=== PATIENT | male | born 1950 | race Caucasian/White ===

== ENCOUNTER 2016-05-25 13:10 | Inpatient (IN) | payer OTHER ==
--- NOTE | ~2016-05-25 | OR ---
Unit #: [id number] #: [id number] Patient: WOODROW STEWART [id number] [address] [place], [place] [address] [id number] I MR#: [id number] NAME: WOODROW STEWART ROOM: [facility] Date of Procedure: 05/28/2016 Admission Date: 05/25/2016 Surgeon: Williams Tay M.D. : 1950 Attending Physician: Jerry Tompkins M.D. Primary Care Physician: Dena White M.D. OPERATIVE REPORT INDICATIONS FOR PROCEDURE A 65-year-old white male with evidence of right upper lobe obstruction with postobstructive airspace disease, rule out malignancy. PROCEDURE PERFORMED Fiberoptic bronchoscopy with biopsy and brushings. PREOPERATIVE DIAGNOSIS Rule out malignancy. POSTOPERATIVE DIAGNOSIS Submucosal tumor obstructing left upper lobe anterior and apical posterior segments. Biopsies and brushes done. DESCRIPTION OF PROCEDURE Procedure was done under MAC on supplemental oxygen. O2 saturations remained greater than 90%. Fiberoptic bronchoscope was introduced through the oral cavity via the bite block. Vocal cords were identified. They moved normally to phonation and breathing. There were some thick secretions in the upper airway, which were suctioned free. The vocal cords were anesthetized with 1% lidocaine. The bronchoscope was passed through the vocal cords into the trachea. Trachea appeared normal. Main meek was sharp. The bronchoscope was advanced down the right mainstem into the bronchus intermedius, right middle lobe, right lower lobe, and right upper lobe. All orifices were widely patent without endobronchial lesions. The bronchoscope was withdrawn to the main meek, advanced down the left mainstem and into the left lower lobe. Left lower lobe appeared normal without endobronchial lesions. Left mainstem appeared normal. The bronchoscope was passed into the left upper lobe. Lingula was patent. There was submucosal tumor involving the other segments. They appeared obstructed extrinsically. Brushes were done in both areas and biopsy was also done. There was moderate bleeding. 4 mL of 1:[id number] epinephrine was required for cessation of bleeding. There was extensive suctioning and lavage. The patient will be returned to the step-down area and monitored. Await pathology. Dictated by... Williams Tay M.D. FRANCIS/noe Unit #: [id number] #: [id number] Patient: WOODROW STEWART TD: 05/29/2016 02:55 JOB #: [id number] OPERATIVE REPORT Page 1 of 1 X Williams Tay MD PROCEDURE OPERATIVE NOTE
--- NOTE | ~2016-05-25 | EKG ---
PATIENT: WOODROW STEWART UNIT #: [id number] Ventricular Rate: 140 BPM Atrial Rate: 140 BPM P-R Interval: 90 ms QRS Duration: 154 ms Q-T Interval: 368 ms QTC Calculation(Bezet): 561 ms P [place]: 100 degrees Calculated R [place]: 74 degrees Calculated T [place]: -22 degrees Diagnosis Line: Atrial fibrillation with rapid ventricular Diagnosis Line: response Diagnosis Line: Right bundle branch block Diagnosis Line: Inferior infarct (cited on or before 31-JAN-2016) Diagnosis Line: Anterolateral infarct (cited on or before Diagnosis Line: 31-JAN-2016) Diagnosis Line: Abnormal ECG Diagnosis Line: When compared with ECG of 25-MAY-2016 13:04, Diagnosis Line: Atrial fibrillation has replaced Normal sinus Diagnosis Line: rhythm Diagnosis Line: Vent. rate has increased BY 48 BPM Diagnosis Line: Questionable change in initial forces of Lateral Diagnosis Line: leads Diagnosis Line: Confirmed by MAHENDRA CASTRO MD ([id number]) on 05/29/2016 Diagnosis Line: 10:48:55 PM INTERPRETING MD: MATTHEW STEELE
--- NOTE | ~2016-05-25 | CR72 ---
[facility] A Service of [facility] RADIOLOGY TEXT RESULTS PATIENT: WOODROW STEWART LOCATION: [facility] [address]-33 : [birth year] UNIT #: [id number] AGE: [address]: Jerry Tompkins MD SEX: M ORDER DR: [id number] [facility] [address] [place], [place] [address] [id number] I MR#: [id number] Acc #: [id number] NAME: WOODROW STEWART : 1950 SEX: M STUDY DATE/TIME: 05/25/2016 12:09 UNIT: [facility] ROOM: [id number] STUDY DESCRIPTION: CR Chest Single View Portable Attending Physician: Chaya Monson M.D. Ordering Physician: Maria Eugenia Ahmadi M.D. Primary Care Physician: Dena White M.D. MEDICAL IMAGING REPORT This report is preliminary unless electronic signature is present EXAM Single view chest INDICATIONS Dyspnea and shortness of air. 1-week duration. FINDINGS Single portable AP view of the chest compared to 05/20/2016. The dense left upper lobe airspace opacity is fairly similar to the prior study. There is increasing density and/or effusion in the left hemithorax. Right lung is clear. IMPRESSION 1. Increasing atelectasis and/or effusion in the left lower lobe. 2. Dense consolidation in the left upper lobe. Dictated by... Tomi Wallace M.D. THIS IS AN ELECTRONICALLY VERIFIED REPORT Tomi Wallace M.D. at 05/26/2016 10:43 AM JENNIFFER/lane TD: 05/26/2016 05:04 JOB #: [id number] MEDICAL IMAGING REPORT Page 1 of 1 COPY
--- NOTE | ~2016-05-25 | HP ---
Unit #: [id number] #: [id number] Patient: WOODROW STEWART [id number] [address] [facility] [place], [place] [address] [id number] MR#: [id number] NAME: WOODROW STEWART ROOM: Age: 65 Sex: M Admission Date: 05/25/2016 : 1950 Attending Physician: Maria Eugenia Ahmadi M.D. Primary Care Physician: Dena White M.D. HISTORY AND PHYSICAL CHIEF COMPLAINT Shortness of air. HISTORY OF PRESENT ILLNESS The patient is a 65-year-old male with a past medical history of CHF, coronary artery disease, hypertension, hyperlipidemia, COPD with continued tobacco abuse, chronic kidney disease, chronic pain, alcohol abuse, lupus who presented to the emergency department for evaluation of the above. The patient states that he has not been feeling well since November. He was hospitalized here 03/02/2016 through 03/05/2016 for CHF exacerbation and multifocal pneumonia. He states that he never returned to baseline after that admission. He was diagnosed with the flu a couple of weeks ago. He possibly took Tamiflu. He was diagnosed by his primary care physician with pneumonia recently and was on Levaquin. He states that he has had persistent shortness of breath and productive cough. He has not been taking his medications as prescribed. He states that the Lasix is "harmful" and the spironolactone was "not helpful." He denies any chest pain. Upon arrival in the emergency department oxygen saturation was 97% on room air. Chest x-ray shows increasing atelectasis involving the left lower lobe being in dense consolidation involving the left upper lobe. He was given vancomycin, Zosyn and tobramycin in the emergency department. Also of note, his lactic acid is 2.5, BNP is greater than 4,877. He is being admitted to [facility] for evaluation and further treatment. PAST MEDICAL HISTORY 1. Admission to [facility] 03/02/2016 through 03/05/2016 for CHF exacerbation and multifocal pneumonia. 2. Congestive heart failure with an ejection fraction of 10% documented on echocardiogram in 02/2016. He has seen Dr. Washington in the past. 3. Coronary artery disease, status post coronary artery bypass grafting. 4. Hypertension. 5. Hyperlipidemia. 6. History of TIA. 7. COPD with continued tobacco abuse. 8. Lupus previously on Plaquenil. 9. Pancreatitis. 10. Chronic kidney disease. 11. Chronic pain. PAST SURGICAL HISTORY Unit #: [id number] #: [id number] Patient: WOODROW STEWART 1. Coronary artery bypass grafting. 2. Cardiac stent placement. 3. Skin cancer excision. SOCIAL HISTORY The patient is a daily drinker. He drinks 1 to 3 mixed drinks on a daily basis. He denies going through withdrawal though he has had visual hallucinations per chart review. He continues to smoke 1/2 pack of cigarettes daily. He moved to [place] from [place] in 09/2015. FAMILY HISTORY Notable for his mother having cerebrovascular accident. Dad had congestive heart failure. ALLERGIES Lisinopril, Coumadin, hydrochlorothiazide, adenosine, metoprolol, carvedilol, psyllium. HOME MEDICATIONS Per the discharge summary from 02/2016 include Lasix 40 mg b.i.d.; Spironolactone 25 mg p.o. daily; Flonase daily; atenolol 25 mg t.i.d.; Cozaar 100 mg daily; Pepcid 20 mg b.i.d.; Coenzyme Q 600 mg daily; Melatonin 2 mg at bedtime p.r.n.; Aspirin 325 mg daily; [place] 5/325 daily; Niacin 500 mg b.i.d. Home medications will need to be reviewed and verified. REVIEW OF SYSTEMS A complete review of systems is negative except as indicated in the HPI. The patient is selectively compliant with his medications. He states that he has lost about 30 pounds. PHYSICAL EXAMINATION VITAL SIGNS: Temperature 97.5, pulse 88, respirations 18, blood pressure 146/79, oxygen saturation is 97% on room air. GENERAL: The patient is a male who is chronically ill appearing. HEENT: The head is atraumatic. Mucous membranes are moist. NECK: Supple. Trachea is midline. CARDIOVASCULAR: Regular rate and rhythm. LUNGS: Demonstrate decreased breath sounds on the left with scattered rhonchi. Breathing is labored with conversation. ABDOMEN: Soft, nontender with bowel sounds present in all four quadrants. EXTREMITIES: Show trace edema. NEUROLOGIC: The patient is awake and alert. He follows commands. PSYCH: The patient has a flat affect. He is cooperative with exam. SKIN: Skin of examined areas is warm and dry. DIAGNOSTIC STUDIES CARDIOLOGY STUDIES: EKG shows normal sinus rhythm with a rate of 92 BPM. IMAGING STUDIES: Chest x-ray shows increasing atelectasis in the left lower lobe and dense consolidation involving the left upper lobe. LABORATORY STUDIES: Rapid flu screen is negative. Troponin is less than 0.5. Troponin is less than 0.05. Complete blood count notable for a blood cell count of 18.5, hemoglobin and hematocrit of 11.2 and 35.9 respectively, platelets are 553. Comprehensive metabolic panel is notable for glucose of 135, BUN and creatinine 29 and 1.4 respectively, calcium is Unit #: [id number] #: [id number] Patient: WOODROW STEWART 11.7, alk phos 99, albumin 2.8, lactic acid is 2.5. BNP is greater than 4,877. ASSESSMENT The patient is a 65-year-old male with: 1. Healthcare associated pneumonia. The patient received vancomycin, Zosyn, and tobramycin in the emergency department. 2. Sepsis with a lactic acid of 2.5. 3. History of influenza, possibly treated with Tamiflu. 4. CHF exacerbation. The patient is noncompliant with medication. He has an ejection fraction of 10% as documented in 02/2016. 5. Hypercalcemia. The patient's calcium was 9.7 on 03/30/2016. It is 11.7 today. 6. Coronary artery disease, status post coronary artery bypass grafting. 7. Hypertension. 8. Hyperlipidemia. 9. COPD with continued tobacco abuse. 10. Chronic kidney disease, stage 3 with a baseline creatinine of approximately 1.3. The patient has seen Dr. Sifuentes in the past. 11. Chronic pain. 12. Alcohol abuse. 13. History of lupus. 14. History of pancreatitis. PLAN 1. Admit to an intermediate level. 2. 2 g sodium 1800 mL fluid restricted heart healthy diet if passes bedside swallow. 3. Fall precautions. 4. Bedrest. 5. Blood cultures x2. 6. Sputum culture and sensitivity. 7. Supplemental oxygen. 8. Check ABG. 9. Vancomycin IV. 10. Tobramycin IV. 11. Zosyn IV for healthcare associated pneumonia pending further workup. 12. Procalcitonin level. 13. Streptococcal and Legionella urine antigens. 14. DuoNeb q.4 hours. 15. Sepsis protocol with repeat lactic acid. 16. Consult Dr. Barros who has seen the patient in the past regarding healthcare associated pneumonia. 17. Serial cardiac enzymes. 18. Strict I's and O's. 19. Daily weights. 20. Dobutamine drip at 5 mcg/kg/min. 21. Consult Dr. Washington regarding CHF. 22. Check ionized calcium and intact PTH for further evaluation of hypercalcemia. 23. Thiamine, folic acid, and multivitamin. 24. CIWA scoring. 25. Repeat labs in the morning. 26. SCDs for DVT prophylaxis. 27. Additional workup and consultants based on above. Regarding code status, the patient is a full code. Unit #: [id number] #: [id number] Patient: WOODROW STEWART Dictated by Nader Canchola/jemima TD: 05/25/2016 15:19 JOB #: [id number] HISTORY AND PHYSICAL Page 1 of 1 X Chaya Monson MD X HISTORY AND PHYSICAL
--- NOTE | ~2016-05-25 | XA55 ---
[facility] A Service of [facility] & [facility] RADIOLOGY TEXT RESULTS PATIENT: WOODROW STEWART LOCATION: [facility] 339-01 : [birth year] UNIT #: [id number] AGE: [address]: Jerry Tompkins MD SEX: M ORDER DR: [id number] [address] [place], [place] [address] [id number] I MR#: [id number] Acc #: [id number] NAME: WOODROW STEWART : 1950 SEX: M STUDY DATE/TIME: 05/30/2016 14:26 UNIT: A [facility] ROOM: [facility] STUDY DESCRIPTION: XA BX Lymph Node Superficial Attending Physician: Jerry Tompkins M.D. Ordering Physician: Danie Tucker M.D. Primary Care Physician: Dena White M.D. MEDICAL IMAGING REPORT This report is preliminary unless electronic signature is present EXAM Ultrasound-guided fine-needle aspiration and core biopsy of a left neck lymph node INDICATIONS 65-year-old male with a history of suspected lung cancer. He has a palpable lymph node it his left neck, suspicious for metastasis. Fine-needle aspiration was requested. PROCEDURE The risks, benefits and alternatives of the procedure were discussed with the patient informed consent was obtained. In the procedure room a timeout was performed confirming correct patient and procedure. All elements of maximum sterile-barrier technique utilized according to guidelines appropriate for the procedure. TECHNIQUE/FINDINGS Ultrasound of the palpable abnormality demonstrated an enlarged hypoechoic irregular abnormal appearing lymph node. The overlying skin was prepped and draped in the usual sterile fashion. 1% lidocaine was utilized to anesthetize the skin and underlying subcutaneous tissues. Next under ultrasound guidance initial fine-needle aspiration of the node was performed with 3 25 gauge needles and the samples were evaluated by pathology. Next two small core biopsies were able to be obtained with an 18-gauge needle and also sent to pathology. Patient tolerated procedure well without immediate complications. IMPRESSION Technically successful ultrasound-guided FNA and core biopsy of a abnormal appearing left neck lymph node. Dictated by... Franklyn Bosch M.D. [facility] A Service of [facility] & [facility] RADIOLOGY TEXT RESULTS PATIENT: WOODROW STEWART LOCATION: [facility] 339-01 : [birth year] UNIT #: [id number] AGE: [address]: Jerry Tompkins MD SEX: M ORDER DR: THIS IS AN ELECTRONICALLY VERIFIED REPORT Franklyn Bosch M.D. at 05/31/2016 2:34 PM JESISCA/lane TD: 05/30/2016 19:37 JOB #: [id number] MEDICAL IMAGING REPORT Page 1 of 1 COPY
--- NOTE | ~2016-05-25 | CR72 ---
[facility] A Service of [facility] & [facility] RADIOLOGY TEXT RESULTS PATIENT: WOODROW STEWART LOCATION: [facility] 339-01 : [birth year] UNIT #: [id number] AGE: [address]: Jerry Tompkins MD SEX: M ORDER DR: [id number] [facility] [address] [facility] [place], [place] [address] [id number] I MR#: [id number] Acc #: [id number] NAME: WOODROW STEWART : 1950 SEX: M STUDY DATE/TIME: 05/27/2016 14:37 [facility] ROOM: [facility] STUDY DESCRIPTION: CR Chest Single View Portable Attending Physician: Jerry Tompkins M.D. Ordering Physician: Anthony Sykes M.D. Primary Care Physician: Dena White M.D. MEDICAL IMAGING REPORT This report is preliminary unless electronic signature is present EXAM Portable chest radiograph 05/27/2016 COMPARISON 05/25/2016 HISTORY Status post thoracentesis. An AP view is obtained. FINDINGS Cardiac size is normal. The patient has had interim drainage of the left pleural effusion. No residual fluid is seen. Left base is re-expanded. Left upper lobe infiltrate persists. CONCLUSION Persistent left upper lobe infiltrate. Interim drainage of the left-sided pleural fluid collection. No pneumothorax. Dictated by... Anthony Sykes M.D. THIS IS AN ELECTRONICALLY VERIFIED REPORT Anthony Sykes M.D. at 05/27/2016 5:04 PM EFRA/marques TD: 05/27/2016 16:54 JOB #: [id number] MEDICAL IMAGING REPORT Page 1 of 1 COPY
--- NOTE | ~2016-05-25 | CO ---
Unit #: [id number] #: [id number] Patient: VITALIY STEWART [id number] [address] [place], [place] [address] [id number] I MR#: [id number] NAME: VITALIY STEWART ROOM: 339 Age: 65 Sex: M Admission Date: 05/25/2016 : 1950 Attending Physician: Jerry Tompkins M.D. Primary Care Physician: Dena White M.D. Requesting Physician: Williams Tay M.D. Consultation Date: 05/30/2016 CONSULTATION REPORT REASON FOR CONSULTATION Newly diagnosed lung cancer. HISTORY OF PRESENT ILLNESS Mr. Vitaliy Stewart is 65 years old. This is his third hospitalization in as many months for shortness of breath, weight loss, with a diagnosis of congestive heart failure. He was hospitalized January 30 and discharged February 05, 2016 with congestive heart failure, readmission on March 02 through March 12 and now admitted on May 25. A CT scan of the chest done on March 29 was abnormal and showed abnormal soft tissue thickening in the left hilum encasing the left upper lobe pulmonary bronchus. There were dense consolidative-type changes in the left upper lobe. There were small noncalcified nodules scattered within both lungs. There was also, what was felt to be, pathologic lymphadenopathy measuring 4.5 cm to 3.2 cm and right lower paratracheal adenopathy measuring 3.1 cm x 3.1 cm and an AP window measuring 1.7 cm x 2.7 cm along with additional anterior mediastinal subcarinal adenopathy. Mr. Stewart had earlier, because of visual hallucinations, an MRI of the brain done on January 09, which showed greater than expected volume loss for age with some abnormal enhancement in the kristopher thought to be small vessel disease. He underwent a bronchoscopy during this admission by Dr. Tay on May 28 with findings of submucosal tumor involving the left upper lobe with patent lingula. There was obstruction "externally." Brushings were done, as well as a biopsy. Biopsy is negative for malignancy; however, brushings are positive for a non-small cell cancer but not enough material to do additional staining. Mr. Stewart tells me his appetite and weight are variable, and he thinks that much of his weight loss is a combination of heart failure, as well as related to his decreased appetite. He also has ischemic cardiomyopathy with coronary artery disease with angioplasty and stent placement and bypass surgery in January of 2015. His ejection fraction is about 10%. He has declined an ICD. PAST HISTORY 1. Ischemic cardiomyopathy with chronic congestive heart failure. 2. Hypertension. 3. Hyperlipidemia. 4. Transient ischemic attack. 5. COPD. Unit #: [id number] #: [id number] Patient: VITALIY STEWART 6. History of lupus. FAMILY HISTORY Negative for cancer in the immediate family. SOCIAL HISTORY Smokes about half a pack a day. Drinks about 2 or 3 mixed drinks a day. He moved from [facility] with his . He has no children of his own. His does have family locally. REVIEW OF SYSTEMS A 14-point review of systems was taken. CONSTITUTIONAL: Progressive weight loss, decreased appetite as discussed. EYES: Visual hallucinations, which he tells me are better. EARS, NOSE, MOUTH AND THROAT: Negative. CARDIOVASCULAR: Congestive heart failure. RESPIRATORY: Shortness of breath. He did have a large pleural effusion, of which 1,600 mL was drained on the left side with serology negative for malignancy, although there were atypical cells. GASTROINTESTINAL: Negative. GENITOURINARY: Negative. NEUROLOGIC: History of TIA. ALLERGIC: Negative. LYMPHATIC: Negative. ENDOCRINE: Negative. PSYCHIATRIC: Negative. PHYSICAL EXAMINATION GENERAL: He is an elderly man who looks older than stated age. Looks to have recently lost a lot of weight, looks chronically ill. He is awake, alert and oriented x3. VITALS: Temperature is 97, pulse rate 80, respirations 20, blood pressure 130/83, O2 sats 96% on room air. Weight is 121 pounds. HEENT: Head examination shows pupils are equal and react well to light. Mild pallor. No icterus. Mucous membranes are moist. NECK: Without adenopathy, JVD or thyromegaly. CARDIOVASCULAR SYSTEM: First and second heart sounds were heard and regular. LUNGS: Chest expansion is symmetric; however, there is decreased air entry in the left base. ABDOMEN: Abdomen is soft, nontender. Bowel sounds are active. No organomegaly. EXTREMITIES: Extremities show 1+ pitting edema. Good pulses felt. NEUROLOGIC: He is awake, alert and oriented x3 without any focal findings. SKIN: Negative. LYMPHATICS: A small 1-cm left axillary lymph node palpable. DIAGNOSTIC STUDIES LABS: BMP shows a BUN of 31, creatinine 1.7, eGFR 41.4. White count is 19.4, hemoglobin 10.8, platelet count 408. ASSESSMENT AND PLAN Mr. Vitaliy Stewart is 65 years old with history of ischemic cardiomyopathy, chronic congestive heart failure with ejection fraction of 10% with progressive weight loss and left pleural effusion, which appear to be related to his heart failure with left upper lobe lung cancer with mediastinal lymphadenopathy. Brushings show non-small cell lung cancer, Unit #: [id number] #: [id number] Patient: VITALIY STEWART although additional stains could not be done. I had an extensive discussion of the situation with Mr. Stewart, as well as his on the phone. Recommended a repeat MRI of the brain given that the last MRI was done in December, as well as a PET CT scan for confirmation of stage, following which we can discuss about additional therapeutic options. I will get an ultrasound of the axilla to see whether the palpable axillary lymph node is accessible and, if so, get a biopsy, as well. Thank you for allowing me to participate in his care. Dictated by... Nader Lai/massiel TD: 05/30/2016 10:40 JOB #: [id number] CONSULTATION REPORT Page 1 of 1 X Danie Tucker MD X CONSULTATION REPORT
--- NOTE | ~2016-05-25 | DS ---
Unit #: [id number] #: [id number] Patient: WOODROW STEWART [id number] [address] [address] [id number] I MR#: [id number] NAME: WOODROW STEWART ROOM: 339 Age: 65 Sex: M Admission Date: 05/25/2016 : 1950 Discharge Date: 05/30/2016 Attending Physician: Jerry Tompkins M.D. Primary Care Physician: Dena White M.D. DISCHARGE SUMMARY DISCHARGE DIAGNOSES 1. Healthcare-associated pneumonia. 2. Severe sepsis. 3. Acute on chronic systolic heart failure. 4. Hypercalcemia. 5. Stage 3 chronic kidney disease. 6. Non-small cell lung cancer. 7. Acute hypoxic respiratory failure. HOSPITAL COURSE Patient is a 65-year-old male with history of alcohol abuse who presented to the ED with a complaint of shortness of breath. Patient had recently been treated for pneumonia, but had persistent shortness of breath and cough since then. Also, he had stopped taking his Lasix as well. The patient was started on vanc., Zosyn, and tobra. for a presumed healthcare-associated pneumonia. The patient was noted to have a BNP greater than 4000 and was started on diuretics as well. The patient had been seen in the past by Chest Medicine and a consult was placed during this admission. The patient was thought to have evidence of a right upper lobe obstruction with postobstructive airspace disease and was taken for fiberoptic bronchoscopy. At this point, the concern is for non-small cell lung cancer. The patient has done well with treatments described above. At this time, he is stable and ready for discharge. He is to undergo fine needle aspiration and then be discharged home. DISCHARGE MEDICATIONS 1. Tenormin 25 mg p.o. b.i.d. 2. Lasix 40 mg p.o. daily. 3. Cozaar 100 mg p.o. daily. 4. Pepcid AC 20 mg p.o. b.i.d. 5. CoQ10 600 mg p.o. daily. 6. Aspirin 81 mg daily. 7. Motrin 400 mg p.o. t.i.d. as needed. 8. Hydrocodone/acetaminophen 5/325 one p.o. daily as needed. 9. Augmentin 875 mg p.o. b.i.d. 10. Spironolactone 12.5 mg p.o. b.i.d. 11. Niaspan 1000 mg p.o. b.i.d. FOLLOWUP 1. The patient should follow up with Dr. Washington August 05 at 12:15. Unit #: [id number] #: [id number] Patient: WOODROW STEWART 2. Should follow up with oncology later this week. Dictated by... Jerry Tompkins M.D. KALA/hebert TD: 05/31/2016 07:39 JOB #: [id number] DISCHARGE SUMMARY Page 1 of 1 X Jerry Tompkins MD X DISCHARGE SUMMARY
--- NOTE | ~2016-05-25 | XA203 ---
[facility] A Service of [facility] RADIOLOGY TEXT RESULTS PATIENT: WOODROW STEWART LOCATION: [facility] 339-01 : 50 UNIT #: [id number] AGE: [address]: Jerry Tompkins MD SEX: M ORDER DR: [id number] [place] [id number] [facility]. [place], [place] [address] [id number] I MR#: [id number] #: [id number] NAME: WOODROW STEWART : 1950 SEX: M STUDY DATE/TIME: 05/27/2016 14:01 UNIT: C3A U ROOM: [facility] STUDY DESCRIPTION: XA Thoracentesis Attending Physician: Jerry Tompkins M.D. Ordering Physician: Alonso Veliz M.D. Primary Care Physician: Dena White M.D. MEDICAL IMAGING REPORT This report is preliminary unless electronic signature is present EXAM Ultrasound-guided left thoracentesis HISTORY Pneumonia. Left pleural effusion. FINDINGS Procedure, attendant risks and options were discussed with Mr. Partida. He understands and wishes to proceed. Patient was placed in the sitting position. From a posterior approach ultrasound study was performed and an appropriate site chosen. Skin was cleansed with the Chlorhexidine solution and draped. Sterile gloves utilized. Under local anesthesia a 5-Urdu catheter was inserted. A total of 1.6 L of fluid was withdrawn. This was very well tolerated. Postprocedure chest radiograph shows complete reexpansion of the left lower lobe with dense consolidation in the left upper lobe. Permanent ultrasound image was recorded. CONCLUSION Successful ultrasound-guided left thoracentesis with removal of 1,600 mL of fluid. Dictated by... Anthony Sykes M.D. THIS IS AN ELECTRONICALLY VERIFIED REPORT Anthony Sykes M.D. at 05/30/2016 12:00 PM Lorri TD: 05/27/2016 19:57 JOB #: [id number] [facility] A Service of [facility] RADIOLOGY TEXT RESULTS PATIENT: WOODROW STEWART LOCATION: [facility] 339-01 : [birth year] UNIT #: [id number] AGE: [address]: Jerry Tompkins MD SEX: M ORDER DR: MEDICAL IMAGING REPORT Page 1 of 1 COPY
--- NOTE | ~2016-05-25 | EKG ---
PATIENT: WOODROW STEWART UNIT #: [id number] Ventricular Rate: 92 BPM Atrial Rate: 92 BPM P-R Interval: 158 ms QRS Duration: 156 ms Q-T Interval: 418 ms QTC Calculation(Bezet): 516 ms P [place]: 51 degrees Calculated R [place]: 78 degrees Calculated T [place]: 6 degrees Diagnosis Line: Normal sinus rhythm Diagnosis Line: Possible Left atrial enlargement Diagnosis Line: Right bundle branch block Diagnosis Line: Inferior infarct (cited on or before 31-JAN-2016) Diagnosis Line: Anterolateral infarct (cited on or before Diagnosis Line: 31-JAN-2016) Diagnosis Line: Abnormal ECG Diagnosis Line: When compared with ECG of 30-MAR-2016 11:27, Diagnosis Line: Sinus rhythm has replaced Atrial fibrillation Diagnosis Line: Vent. rate has decreased BY 45 BPM Diagnosis Line: Questionable change in initial forces of Lateral Diagnosis Line: leads Diagnosis Line: Nonspecific T wave abnormality has replaced Diagnosis Line: inverted T waves in Inferior leads Diagnosis Line: Confirmed by MAHENDRA CASTRO MD ([id number]) on 05/28/2016 Diagnosis Line: 10:51:54 PM INTERPRETING MD: MATTHEW STEELE
--- NOTE | ~2016-05-25 | CO ---
Unit #: [id number] #: [id number] Patient: WOODROW STEWART [id number] [facility] [address] [facility]. [place], [place] [address] [id number] I MR#: [id number] NAME: WOODROW STEWART ROOM: 339 Age: 65 Sex: M Admission Date: 05/25/2016 : 1950 Attending Physician: Jerry Tompkins M.D. Primary Care Physician: Dena White M.D. Consultation Date: 05/26/2016 CONSULTATION REPORT REASON FOR CONSULT Congestive heart failure. HISTORY OF PRESENT ILLNESS The patient is a 65-year-old male who is known to us, was in the hospital here at [facility] in February of this year with acute systolic heart failure. He has been noncompliant with his medical therapy in the past, and his medications were optimized, putting him on Lasix twice a day, Aldactone, atenolol, Cozaar, aspirin and was to go home with a LifeVest and to follow up with Dr. Washington in the office on March 27 to evaluate for an ICD. The patient tells me he was not going to follow up for 6 months. He has not been compliant with his Lasix. Over the last 2 weeks he has been progressively short of breath and a cough. He said his has also had the same thing and was being treated for pneumonia. The patient was also being treated with antibiotics, but due to progressive worsening symptoms, he came to the hospital for further evaluation. He was diagnosed with an acute left upper lobe pneumonia, and his BNP was 4,877. The patient is currently comfortable. He has no orthopnea. He does have some swelling in this lower extremities. He is mostly dyspneic with exertion and denies any chest pain or pressure. PAST MEDICAL HISTORY 1. Ischemic cardiomyopathy. 2. History of coronary artery disease with stents and then CABG in January of 2014. 3. Chronic systolic heart failure, EF 10%. 4. Hypertension. 5. Hyperlipidemia. 6. History of TIA. 7. COPD. 8. Lupus. 9. Noncompliance. 10. Pneumonia. SOCIAL HISTORY The patient is a continued smoker at 1/2 pack per day. History of alcohol abuse. No drug abuse. 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 FAMILY HISTORY Noncontributory. ALLERGIES Lisinopril, Metamucil, Coumadin, HCTZ, adenosine, Metoprolol, carvedilol, Unit #: [id number] #: [id number] Patient: WOODROW STEWART. HOME MEDICATIONS 1. Tenormin 25 mg b.i.d. 2. Cozaar 100 mg daily. 3. Lasix 40 mg daily. 4. Aspirin 81 mg daily. 5. Niaspan 1,000 mg b.i.d. 6. Coenzyme Q10 600 mg daily. 7. Pepcid AC 20 mg b.i.d. 8. Motrin 400 mg t.i.d. 9. [place] 5/325 p.o. daily as needed for pain. REVIEW OF SYSTEMS Complains of dyspnea with exertion and cough. No fever, chills, nausea, vomiting, diarrhea, dizziness, lightheadedness, headache, changes in visual purvis, chest pain, pressure, tightness, diarrhea or vomiting. All other review of systems is negative. PHYSICAL EXAMINATION GENERAL: The patient is awake and alert in no acute distress. SKIN: Color is pink. Skin is warm and dry. VITAL SIGNS: Afebrile. Heart rate 95, blood pressure 136/101. NECK: Normal carotid upstrokes. No auscultated bruit. Positive JVD lying supine. Negative hepatojugular reflux. NEUROLOGIC: No focal motor or sensory deficits. CHEST: Respirations are unlabored at rest, regular. Bilateral breath sounds have crackles in the bases and crackles in the left upper lobe with decreased air entry throughout. HEART: S1, S2. Positive S3 gallop. No murmurs or rubs. ABDOMEN: Abdomen is soft, nontender, nondistended. Positive bowel sounds x4 quadrants. No ascites noted. EXTREMITIES: Bilateral lower extremities have 1+ ankle edema. Moves all extremities without any musculoskeletal difficulty. DP/PT pulses are 2+. Cap refill is less than 3 seconds. DIAGNOSTICS CARDIOVASCULAR: EKG - Sinus tachycardia with right bundle branch block, old inferior and anterior wall W[place]. IMAGING: Chest x-ray shows left upper lobe pneumonia and basilar atelectasis. LABS: Sodium 140, potassium 4.2, chloride 102, CO2 42, BUN 29, creatinine 1.4, glucose 135. White blood cell count 18.5, hemoglobin 11.2, hematocrit 35.9, platelet count 553. Troponin initially negative at 0.05. Second troponin borderline elevation at 0.07. BNP 4,877. IMPRESSION 1. Acute on chronic systolic heart failure. 2. Noncompliance with followup and medications. 3. Left upper lobe pneumonia. 4. History of coronary artery disease with coronary artery bypass graft surgery in (1) . 5. Hypertension. 6. Hyperlipidemia. 7. COPD. 8. Continued tobacco abuse. Unit #: [id number] #: [id number] Patient: WOODROW STEWART PLAN The patient is refusing IV Lasix. He states it causes him to lose too much weight. Will give 80 mg p.o. now, then start 40 mg t.i.d. He is on a fluid and salt restriction. Will add strict I's and O's. Will check 2 more sets of cardiac enzymes, as his second troponin was indeterminate. Will restart his Aldactone 25 mg daily. Will hold his atenolol. He has been started on a dobutamine drip at 5 mcg/kg/minute. Will monitor renal function and electrolytes closely. Dictated by... Sheryl Jennings APRN for Nader Heard/massiel TD: 05/27/2016 10:25 JOB #: [id number] CONSULTATION REPORT Page 1 of 1 X X CONSULTATION REPORT
--- NOTE | ~2016-05-25 | CO ---
Unit #: [id number] #: [id number] Patient: VITALIY STEWART [id number] [address] [place], [place] [address] [id number] I MR#: [id number] NAME: VITALIY STEWART ROOM: 339 Age: 65 Sex: M Admission Date: 05/25/2016 : 1950 Attending Physician: Jerry Tompkins M.D. Primary Care Physician: Dena White M.D. Consultation Date: 05/26/2016 CONSULTATION REPORT HISTORY OF PRESENT ILLNESS Vitaliy Partida is a 65-year-old, male, whom we have been asked to see due to worsening dyspnea and abnormal chest x-ray showing near whiteout of left lung. Mr. Partida was hospitalized at this hospital in early March of this year - about 2 months ago. At that time, he was treated for decompensated congestive heart failure and possible pneumonia in his left chest. He was seen in followup by Dr. Tay during that hospital stay. The patient has severe congestive heart failure with ejection fraction of about 10% and ischemic cardiomyopathy. He also has chronic kidney disease. He continues to smoke and suspected of having COPD, though the system had not been documented by pulmonary function testing. After his discharge in early March, he returned home. His respiratory status was fairly stable for about 3 to 4 weeks and beyond that point, he has had progressively worsening shortness of breath, exertional dyspnea, and nonproductive cough. He denied fever, chills, chest pain, hemoptysis, or productive cough. He presented to the emergency room with the above complaints. There was concern that he may have recurrence of pneumonia and he has been admitted. Personal review of the chest x-ray suggests near white out of left lung with a lower third with a very dense homogeneous opacifications suggestive of pleural effusion and bilateral increased vascular markings. No air bronchogram for evident. PAST MEDICAL HISTORY Remarkable for the above-mentioned cardiac problems. He also has a history of systemic lupus erythematosus in the past. He has been on Plaquenil. He also has a history of pancreatitis, chronic kidney disease, chronic pain syndrome, and allergic rhinitis. PAST SURGICAL HISTORY Include CABG and excision of skin cancers. CURRENT MEDICATIONS Nebulized DuoNeb, thiamine, folic acid, multivitamins, famotidine, Tenormin, losartan, aspirin, niacin, Zosyn, tobramycin, vancomycin, dobutamine. ALLERGIES He is allergic to lisinopril, dextrose, warfarin, hydrochlorothiazide, adenosine, and metoprolol. Unit #: [id number] #: [id number] Patient: VITALIY STEWART FAMILY HISTORY Reviewed and positive for cerebrovascular disease and congestive heart failure. No history of lung disease. SOCIAL HISTORY He drinks daily 1 to 3 beverages per day. No history of alcohol withdrawal or DTs. He smokes about 1/2 pack of cigarettes per day, but claims to "cut way back." REVIEW OF SYSTEMS CONSTITUTIONAL: He denied fever, chills, or recent change in weight. HEENT: Denied nasal or sinus congestion. No epistaxis. NECK: No pain in cervical spine. No thyroid enlargement. PULMONARY: Shortness of breath, mild nonproductive cough. No fever or chills. CARDIOVASCULAR: Denied midsternal chest pain, ankle edema, or orthopnea. GI: Denied nausea, vomiting, or diarrhea. : Denied dysuria or hematuria. SKIN: No rash or nodules. LYMPH: No adenopathy in neck, cervical, or axillary areas. NEUROLOGIC: No loss of consciousness, seizures, or syncope. ENDOCRINE: Denied cold intolerance, polyuria, or polydipsia. MUSCULOSKELETAL: Complained of chronic low back pain, also pain in his hips and knees. PHYSICAL EXAMINATION GENERAL: He appeared a well-developed and nourished white male, in no acute distress. VITAL SIGNS: Temp was 97.8, pulse 83, blood pressure 135/73, respirations were 16. HEENT: Head; normocephalic without evidence of trauma. Eyes; pupils equal, round, and reactive to light and accommodation. Sclerae anicteric. Conjunctivae normal. Ear, nose, throat nostrils were open and patent. Tympanic membranes appear normal. Oral cavity was remarkable for normally placed soft palate. No thrush. NECK: Supple without adenopathy or jugular venous distention. LUNGS: Dullness to percussion with very diminished breath sounds over the left chest and a few end inspiratory rales at the left base. No rhonchi or wheezes. CARDIAC: PMI was laterally displaced from the midclavicular line. No murmurs or gallops. ABDOMEN: Soft, nontender. No hepatosplenomegaly or masses. Bowel sounds are normal. GENITALIA: Normal male. RECTAL: Deferred. EXTREMITIES: Without clubbing or cyanosis. There was a trace of ankle edema. SKIN: Warm and dry with normal capillary refill. LYMPH: No adenopathy in neck, cervical, or axillary areas. PSYCH: Awake, alert, oriented x3. He did not seem particularly anxious or depressed. MUSCULOSKELETAL: Equal muscular development bilaterally. No joint swelling or erythema, 4/5 strength in all extremities. NEUROLOGIC: Cranial nerves II through XII intact. Sensory normal to pinprick and touch. Deep tendon reflexes with 1+ both upper and lower extremities. Babinski is negative. DIAGNOSTIC STUDIES Unit #: [id number] #: [id number] Patient: VITALIY STEWART IMAGING STUDIES: Chest x-ray is as mentioned above. LABORATORY RESULTS: Arterial blood gas done on oxygen 4 L/minute on 05/25/2016; pO2 was 39.5, 7.427. Electrolytes were normal. BUN was 31, creatinine 1.4. White [place] [address], hemoglobin 10, and hematocrit 33%. IMPRESSION 1. Dyspnea - progressively worse. 2. Congestive heart failure. 3. Tobacco abuse - suspected chronic obstructive pulmonary disease. 4. Near complete opacification of left chest suggestive of vascular congestion, and a moderate-sized left pleural effusion. RECOMMENDATIONS I agree with bronchodilators and would suggest that we do a thoracentesis per Interventional Radiology under ultrasound guidance tomorrow. I have left orders for appropriate studies to be done. We would continue current antibiotic therapy, pending culture results. Dictated by... Alonso Veliz M.D. BENEDICTO/noe TD: 05/27/2016 17:12 JOB #: [id number] CONSULTATION REPORT Page 1 of 1 X Alonso Veliz MD X CONSULTATION REPORT
[2016-05-25 11:03] LABS: INFLUENZA A NEG (NEG); INFLUENZA B NEG (NEG)
[2016-05-25 12:45] LABS: POC - CKMB 2.5 ng/mL (0.0-7.9); POC - TROPONIN <0.05 ng/mL (<=0.05)
[2016-05-25 12:52] LABS: BASOPHIL# 0.1 X10e3 (0-0.3); BASOPHIL% 0.8 % (0-2.5); EOSINOPHIL# 0.2 X10e3 (0-0.7); EOSINOPHIL% 1.3 % (0.0-7.0); HEMATOCRIT 35.9 % (38.0-50.0); HEMOGLOBIN 11.2 gm/dL (13.0-16.0); LYMPHOCYTE# 2.6 X10e3 (1.0-3.5); LYMPHOCYTE% 13.9 % (17.0-45.0); MEAN CELL VOLUME 90.7 FL (83-96); MEAN CORPUSCULAR HEMOGLOBIN 28.2 PG (28-34); MEAN CORPUSCULAR HGB CONC 31.1 g/dL (30-36); MEAN PLATELET VOLUME 8.1 FL (6.5-11.5); MONOCYTE# 1.6 X10e3 (0-1.0); MONOCYTE% 8.9 % (3.0-12.0); NEUTROPHIL# 13.9 X10e3 (1.5-7.1); NEUTROPHIL% 75.1 % (40-75); PLATELET COUNT 553 X10e3 (140-420); RED BLOOD COUNT 3.96 X10e (3.90-5.60); RED CELL DISTRIBUTION WIDTH 18.7 % (11.0-15.5); WHITE BLOOD COUNT 18.5 X10e3 (4.0-10.5)
[2016-05-25 12:55] LABS: DIFF IND YES
[~2016-05-25 13:10] MED LIST: ALBUTEROL17 GM INH; ALDACTONE PO; ALDACTONE25 MG PO; ASPIRIN81 MG PO; ATENOLOL25 MG PO; AUGMENTIN875 MG PO; B-1100 MG PO; B-122500 MCG SL; BAYER ASPIRIN325 M1 PO; CELEXA20 MG PO; CHLOR-TRIMETON4 MG PO; COATED ASPIRIN325 M1 PO; COQ-1010 MG PO; COQ-10200 MG PO; COZAAR100 MG PO; DIGOX0.125 MG PO; FLONASE 0.05% N16 G1; FLONASE 0.05% N16 GM; FUROSEMIDE40 MG PO; HYDROCODON-ACE1 EAC7 PO; HYDROCODONE-APA1 T61 PO; LASIX PO; LASIX20 MG PO; LEVOFLOXACIN500 MG PO; LOSARTAN POTAS100 MG PO; MELATONIN PO; MELATONIN1 MG PO; MOTRIN400 M1 DOB; MOTRIN400 M1 PO; NIACIN PO; NIACIN1000 MG PO; NIACIN500 M1 PO; PEPCID AC20 M2 PO; PEPCID AC20 MG PO; PEPCID PO; PSEUDOEPHEDRINE30 M2 PO; PSEUDOEPHEDRINE60 M1 PO; TRAMADOL HCL50 M1 PO; ULTRAM PO
[2016-05-25 13:11] LABS: PLATELET ESTIMATE INCREASED (NORMAL); RBC NORMAL YES
[2016-05-25 13:22] LABS: ALBUMIN SERUM 2.8 g/dL (3.5-5.0); BILIRUBIN, DIRECT 0.2 mg/dL (0.0-0.2); BILIRUBIN,INDIRECT 0.4 mg/dL (0.0-0.9); BILIRUBIN,TOTAL 0.6 mg/dL (0.2-2.0); BUN/CREATININE RATIO 20.71; CALCIUM SERUM 11.7 mg/dL (8.4-10.2); CREATININE SERUM 1.4 mg/dL (0.6-1.4); GLOM FILT RATE Estimated 52.4 mL/min (>60); POTASSIUM 4.2 mmol/L (3.5-5.1); PROTEIN TOTAL SERUM 7.6 g/dL (6.0-8.3)
[2016-05-25 14:29] LABS: POC - CKMB 2.5 ng/mL (0.0-7.9); POC - TROPONIN <0.05 ng/mL (<=0.05)
[2016-05-25] MEDS ORDERED: TENORMIN25 MG PO (16:38)
[2016-05-25] MEDS ORDERED: COZAAR100 MG PO (16:38)
[2016-05-25] MEDS ORDERED: LO-DOSE ASPIRIN81 M1 PO (16:39)
[2016-05-25] MEDS ORDERED: LASIX PO (16:39)
[2016-05-25] MEDS ORDERED: NIASPAN1000 M1 PO (16:42)
[2016-05-25] MEDS ORDERED: PEPCID AC20 MG PO (16:46)
[2016-05-25] MEDS ORDERED: COQ-10200 MG PO (16:46)
[2016-05-25] MEDS ORDERED: MOTRIN400 M1 PO (16:47)
[2016-05-25] MEDS ORDERED: HYDROCODON-ACE1 EAC7 PO (16:47)
[2016-05-25 17:25] LABS: ARTERIAL BLD GAS O2 SATURATION 95.7 % (90.0-100.0); ARTERIAL BLOOD GAS CARBOXY HB 1.4 %sat (0.0-9.0); ARTERIAL BLOOD GAS MET HB 0.6 %sat (0.0-2.0); ARTERIAL BLOOD GAS PCO2 39.5 mmHg (35.0-45.0); ARTERIAL BLOOD GAS PO2 91.2 mmHg (80.0-100); ARTERIAL BLOOD GAS pH 7.427 (7.350-7.450); ARTERIAL DRAW? YES
[2016-05-25 17:26] LABS: ARTERIAL BLOOD GAS ALLEN TEST NORMAL; ARTERIAL BLOOD GAS ART SITE LEFT RADIAL; ARTERIAL BLOOD GAS DELIVERY NASAL CANNULA
[2016-05-25 21:51] LABS: CK TOTAL 19 IU/L (36-174)
[2016-05-26 03:25] LABS: CK TOTAL 14 IU/L (36-174)
[2016-05-26 10:10] LABS: BASOPHIL# 0.1 X10e3 (0-0.3); BASOPHIL% 0.4 % (0-2.5); EOSINOPHIL% 0.2 % (0.0-7.0); HEMATOCRIT 32.1 % (38.0-50.0); LYMPHOCYTE# 0.9 X10e3 (1.0-3.5); LYMPHOCYTE% 5.5 % (17.0-45.0); MEAN CELL VOLUME 90.5 FL (83-96); MEAN CORPUSCULAR HEMOGLOBIN 28.2 PG (28-34); MEAN CORPUSCULAR HGB CONC 31.1 g/dL (30-36); MEAN PLATELET VOLUME 8.1 FL (6.5-11.5); MONOCYTE# 1.1 X10e3 (0-1.0); MONOCYTE% 7.1 % (3.0-12.0); NEUTROPHIL# 13.6 X10e3 (1.5-7.1); NEUTROPHIL% 86.8 % (40-75); PLATELET COUNT 474 X10e3 (140-420); RED BLOOD COUNT 3.55 X10e (3.90-5.60); RED CELL DISTRIBUTION WIDTH 18.7 % (11.0-15.5); WHITE BLOOD COUNT 15.6 X10e3 (4.0-10.5)
[2016-05-26 10:12] LABS: DIFF IND NO
[2016-05-26 10:34] LABS: ALBUMIN SERUM 2.6 g/dL (3.5-5.0); BILIRUBIN,TOTAL 0.8 mg/dL (0.2-2.0); BUN/CREATININE RATIO 22.14; CALCIUM SERUM 11.3 mg/dL (8.4-10.2); CREATININE SERUM 1.4 mg/dL (0.6-1.4); GLOM FILT RATE Estimated 52.4 mL/min (>60); POTASSIUM 3.8 mmol/L (3.5-5.1); PROTEIN TOTAL SERUM 6.7 g/dL (6.0-8.3)
[2016-05-26 10:57] LABS: CK TOTAL 23 IU/L (36-174)
[2016-05-26 16:45] LABS: CK TOTAL 27 IU/L (36-174)
[2016-05-27 06:20] LABS: INR 1.3; PARTIAL THROMBOPLASTIN TIME 24.3 SECONDS (23.5-31.3); PROTHROMBIN TIME (PATIENT) 13.3 SECONDS (9.6-11.5)
[2016-05-27 06:34] LABS: BUN/CREATININE RATIO 19.44; CALCIUM SERUM 10.7 mg/dL (8.4-10.2); CREATININE SERUM 1.8 mg/dL (0.6-1.4); GLOM FILT RATE Estimated 38.6 mL/min (>60); MAGNESIUM 2.1 mg/dL (1.6-3.0); POTASSIUM 3.7 mmol/L (3.5-5.1)
[2016-05-29 08:25] LABS: HEMATOCRIT 34.5 % (38.0-50.0); HEMOGLOBIN 10.8 gm/dL (13.0-16.0); MEAN CELL VOLUME 90.2 FL (83-96); MEAN CORPUSCULAR HEMOGLOBIN 28.4 PG (28-34); MEAN CORPUSCULAR HGB CONC 31.4 g/dL (30-36); MEAN PLATELET VOLUME 8.2 FL (6.5-11.5); RED BLOOD COUNT 3.82 X10e (3.90-5.60); RED CELL DISTRIBUTION WIDTH 19.1 % (11.0-15.5); WHITE BLOOD COUNT 19.4 X10e3 (4.0-10.5)
[2016-05-29 08:43] LABS: BUN/CREATININE RATIO 17.64; CALCIUM SERUM 10.1 mg/dL (8.4-10.2); CREATININE SERUM 1.7 mg/dL (0.6-1.4); GLOM FILT RATE Estimated 41.4 mL/min (>60)
[2016-05-29 08:44] LABS: POTASSIUM 2.9 mmol/L (3.5-5.1)
[2016-05-30 04:54] LABS: BUN/CREATININE RATIO 18.23; CALCIUM SERUM 9.4 mg/dL (8.4-10.2); CREATININE SERUM 1.7 mg/dL (0.6-1.4); GLOM FILT RATE Estimated 41.4 mL/min (>60); POTASSIUM 3.6 mmol/L (3.5-5.1)
[2016-05-30] MEDS ORDERED: COMBIVENT RESPIM4 GM INH (15:47)
[2016-05-30] MEDS ORDERED: AUGMENTIN PO (15:47)
[2016-05-30] MEDS ORDERED: ALDACTONE25 MG PO (15:48)
== END 2016-05-30 16:26 | disposition home or self-care (01) | DRG 853 ==
LOC: CED 13:10 → CEDOF 14:40 → C3A PCU 05-26 18:10
PROVIDERS: Emergency Medicine; Family Medicine; Internal Medicine; Nurse Practitioner
PROC: 0W9B30Z Drainage of Left Pleural Cavity with Drainage Device, Percutaneous Approach (ICD-10-PCS; 2016-05-27)
PROC: 0BB88ZX Excision of Left Upper Lobe Bronchus, Via Natural or Artificial Opening Endoscopic, Diagnostic (ICD-10-PCS; principal; 2016-05-28 10:15)
PROC: 0BBG8ZX Excision of Left Upper Lung Lobe, Via Natural or Artificial Opening Endoscopic, Diagnostic (ICD-10-PCS; 2016-05-28 10:15)
PROC: 07B23ZX Excision of Left Neck Lymphatic, Percutaneous Approach, Diagnostic (ICD-10-PCS; 2016-05-30)
DX: A41.9 Sepsis, unspecified organism (principal); J18.9 Pneumonia, unspecified organism; J96.01 Acute respiratory failure with hypoxia; I50.23 Acute on chronic systolic (congestive) heart failure; J15.212 Pneumonia due to Methicillin resistant Staphylococcus aureus; J15.6 Pneumonia due to other Gram-negative bacteria; J90 Pleural effusion, not elsewhere classified; I13.0 Hypertensive heart and chronic kidney disease with heart failure and stage 1 through stage 4 chronic kidney disease, or unspecified chronic kidney disease; C34.12 Malignant neoplasm of upper lobe, left bronchus or lung; N18.3 Chronic kidney disease, stage 3 (moderate); E83.52 Hypercalcemia; I25.10 Atherosclerotic heart disease of native coronary artery without angina pectoris; Z95.1 Presence of aortocoronary bypass graft; E78.5 Hyperlipidemia, unspecified; J44.9 Chronic obstructive pulmonary disease, unspecified; R65.20 Severe sepsis without septic shock; F17.210 Nicotine dependence, cigarettes, uncomplicated; G89.29 Other chronic pain; F10.10 Alcohol abuse, uncomplicated; M32.9 Systemic lupus erythematosus, unspecified; I25.5 Ischemic cardiomyopathy; Z91.14 Patient's other noncompliance with medication regimen; Z79.82 Long term (current) use of aspirin; R59.9 Enlarged lymph nodes, unspecified; E87.6 Hypokalemia; R00.0 Tachycardia, unspecified
CPT/HCPCS: 36415; 36600; 71010; 76942; 80048; 80053; 80076; 80200; 82308; 82330; 82550; 82553; 82803; 82945; 82947; 83605; 83615; 83735; 83880; 83986; 84132; 84157; 84484; 85025; 85027; 85610; 85730; 87040; 87070; 87102; 87116; 87205; 87206; 87804; 88104; 88108; 88172; 88173; 88305; 88341; 88342; 93005; 94640; 94760; 96365; 96375; 99285; J0171; J1250; J1580; J2543; J3260; J3370

== ENCOUNTER → 2016-06-04 | Outpatient (CLI) | payer OTHER ==
[~2016-06-04] MED LIST changes: +ATENOLOL PO; +AUGMENTIN PO; +CARAFATE1 GM PO; +COMBIVENT RESPIM4 GM INH; +LANOXIN125 MCG PO; +LO-DOSE ASPIRIN81 M1 PO; +NIASPAN1000 M1 PO; +PLAQUENIL200 MG PO; +PROTONIX PO; +TENORMIN25 MG PO
--- NOTE | ~2016-06-04 | MR17 ---
[facility] A Service of [facility] RADIOLOGY TEXT RESULTS PATIENT: WOODROW STEWART LOCATION: [facility] : 50 UNIT #: [id number] AGE: [address]: Danie Tucker MD SEX: M ORDER DR: [id number] [facility] [address] [facility]. [place], [place] [address] [id number] O MR#: [id number] Acc #: [id number] NAME: WOODROW STEWART : 1950 SEX: M STUDY DATE/TIME: 06/04/2016 16:07 UNIT: [facility] ROOM: STUDY DESCRIPTION: MR Brain WWo Contrast Attending Physician: Danie Tucker M.D. Referring Physician: Danie Tucker M.D. Ordering Physician: Danie Tucker M.D. Primary Care Physician: Dena White M.D. MRI CENTER REPORT This report is preliminary unless electronic signature is present. EXAM Brain MRI with and without contrast. HISTORY Lightheadedness, hallucinations and extremity weakness for the past 9 months. Lung cancer diagnosed 3 days ago. Evaluate for brain malignancy suspected. COMPARISON SCAN 01/13/2016 TECHNIQUE Multiplanar imaging of the brain was performed with and without contrast. 11 mL of MultiHance was used. FINDINGS On diffusion weighted imaging, there is no evidence of abnormal restricted diffusion to suggest a recent infarct. The routine brain images show atrophy with moderate chronic ischemic changes in the periventricular deep white matter and in the mid kristopher. There is no evidence of mass lesion, hemorrhage or edema. There is a small chronic lacunar infarct in the left cerebellum with a linear configuration. Images obtained after contrast administration show no enhancing mass lesions. IMPRESSION Atrophy with chronic ischemic changes. No significant change from the previous scan. No evidence of metastatic disease. Dictated by... Robert Raymond M.D. THIS IS AN ELECTRONICALLY VERIFIED REPORT Robert Raymond M.D. at 06/05/2016 4:28 PM [facility] A Service of [facility] RADIOLOGY TEXT RESULTS PATIENT: WOODROW STEWART LOCATION: [facility] : 50 UNIT #: [id number] AGE: [address]: Danie Tucker MD SEX: M ORDER DR: Regla TD: 06/05/2016 10:40 JOB #: [id number] MRI CENTER REPORT Page 1 of 1 COPY
== END | disposition home or self-care (01) ==
LOC: CMRI 15:31
DX: C34.12 Malignant neoplasm of upper lobe, left bronchus or lung (principal); D72.829 Elevated white blood cell count, unspecified; I67.82 Cerebral ischemia; G31.9 Degenerative disease of nervous system, unspecified
CPT/HCPCS: 70553; A9577

== ENCOUNTER → 2016-06-13 | Outpatient (CLI) | payer OTHER ==
--- NOTE | ~2016-06-13 | XA91 ---
[facility] A Service of [facility] RADIOLOGY TEXT RESULTS PATIENT: WOODROW STEWART LOCATION: [facility] : 50 UNIT #: [id number] AGE: [address]: Danie Tucker MD SEX: M ORDER DR: [id number] [facility] [address] [facility] [place], [place] [address] [id number] O MR#: [id number] Acc #: [id number] NAME: WOODROW STEWART : 1950 SEX: M STUDY DATE/TIME: 06/13/2016 10:39 UNIT: CIV[facility] ROOM: STUDY DESCRIPTION: XA CVC Tunneled W Port Attending Physician: Danie Tucker M.D. Ordering Physician: Danie Tucker M.D. Primary Care Physician: Dena White M.D. MEDICAL IMAGING REPORT This report is preliminary unless electronic signature is present EXAM Chest port placement under ultrasound and fluoroscopy HISTORY Lung cancer for chemotherapy PROCEDURE/FINDINGS Procedure, attendant risks and options were discussed with Mr. Partida. He understands and wishes to proceed. Patient was taken to the angio suite and placed in a supine position. IV conscious sedation was administered consisting of IV versed and fentanyl. The patient was monitored by the IR nurse during the procedure. Total sedation was 2 hours. The patient's right neck was prepped with chlorhexadine solution and the anterior chest as well. This was draped and maximal sterile barrier technique including gloves, gowns, drapes, hats and shoe covers were all utilized. Ultrasound was utilized to interrogate the right internal jugular vein and it is patent and under ultrasound guidance a micropuncture was performed with local anesthesia. An 0.018 wire was inserted followed by a micropuncture set and subsequently a 6-Lao introducer sheath. Attention was turned to the right anterior chest wall. This was anesthetized with 1% lidocaine with epinephrine. A horizontal incision was performed about 2 cm below the clavicle. The pocket was bluntly dilated and subsequently the port test fit within the pocket. The pocket was then irrigated with saline. The port was then sutured into the deep fascia with 3-0 Vicryl suture. The tunneler was passed to the right IJ site/ The catheter trimmed to the appropriate length and deployed through the peel-away sheath tip at the cavoatrial junction. The catheter was then aspirated and flushed without difficulty. Heparin solution was utilized. The right IJ site was subsequently closed with a single 2-0 Vicryl deep fascial suture. The chest wall site was closed with 3-0 interrupted Vicryl sutures in the deep and 4.0 Monocryl the dermis. Dermabond was STS. [facility] A Service of [facility] RADIOLOGY TEXT RESULTS PATIENT: WOODROW STEWART LOCATION: [facility] : 50 UNIT #: [id number] AGE: [address]: Danie Tucker MD SEX: M ORDER DR: placed over both sites. Patient was taken to the short-stay unit where he will be monitored until he is completely awake and subsequently discharged. A single spot radiograph was obtained documenting placement. Total fluoroscopy time 0.3 minutes. Total exposure 3 mGy air kerma standard. Dictated by... Anthony Sykes M.D. THIS IS AN ELECTRONICALLY VERIFIED REPORT Anthony Sykes M.D. at 06/13/2016 5:04 PM EFRA/susan TD: 06/13/2016 16:50 JOB #: [id number] MEDICAL IMAGING REPORT Page 1 of 1 COPY
[2016-06-13 08:58] LABS: HEMATOCRIT 34.5 % (38.0-50.0); HEMOGLOBIN 10.8 gm/dL (13.0-16.0); MEAN CELL VOLUME 89.7 FL (83-96); MEAN CORPUSCULAR HEMOGLOBIN 28.2 PG (28-34); MEAN CORPUSCULAR HGB CONC 31.4 g/dL (30-36); MEAN PLATELET VOLUME 7.6 FL (6.5-11.5); RED BLOOD COUNT 3.85 X10e (3.90-5.60); RED CELL DISTRIBUTION WIDTH 18.8 % (11.0-15.5); WHITE BLOOD COUNT 13.7 X10e3 (4.0-10.5)
[2016-06-13 09:16] LABS: INR 1.1; PARTIAL THROMBOPLASTIN TIME 25.5 SECONDS (23.5-31.3); PROTHROMBIN TIME (PATIENT) 11.9 SECONDS (9.6-11.5)
== END | disposition home or self-care (01) ==
LOC: CIVR 08:19
PROVIDERS: Internal Medicine Hematology & Oncology
PROC: 05HM33Z Insertion of Infusion Device into Right Internal Jugular Vein, Percutaneous Approach (ICD-10-PCS; principal; 2016-06-13)
DX: Z45.2 Encounter for adjustment and management of vascular access device (principal); D72.829 Elevated white blood cell count, unspecified; C34.12 Malignant neoplasm of upper lobe, left bronchus or lung; C78.01 Secondary malignant neoplasm of right lung; J91.0 Malignant pleural effusion; C77.0 Secondary and unspecified malignant neoplasm of lymph nodes of head, face and neck; I25.5 Ischemic cardiomyopathy; I50.9 Heart failure, unspecified; I11.0 Hypertensive heart disease with heart failure; Z95.5 Presence of coronary angioplasty implant and graft; E78.5 Hyperlipidemia, unspecified; J44.9 Chronic obstructive pulmonary disease, unspecified; F17.200 Nicotine dependence, unspecified, uncomplicated; L93.0 Discoid lupus erythematosus; Z86.73 Personal history of transient ischemic attack (TIA), and cerebral infarction without residual deficits
CPT/HCPCS: 36415; 76937; 77001; 85027; 85610; 85730; C1788; C1894; J0690; J1642; J2250; J3010

== ENCOUNTER 2016-07-08 19:11 | Inpatient (IN) | payer OTHER ==
--- NOTE | ~2016-07-08 | DS ---
Unit #: [id number] #: [id number] Patient: WOODROW STEWART [id number] [address] [place], [place] [address] [id number] MR#: [id number] NAME: WOODROW STEWART ROOM: 315 Age: 65 Sex: M Admission Date: 07/08/2016 : 1950 Discharge Date: Attending Physician: Beatrice Nleson M.D. Primary Care Physician: Dena White M.D. DISCHARGE SUMMARY DISCHARGE DIAGNOSES 1. Stage 4 metastatic non-small cell lung cancer. 2. Pancytopenia secondary to chemotherapy for cancer. 3. Generalized abdominal pain with nausea likely secondary to complication from chemotherapy. 4. History of paroxysmal atrial fibrillation with rapid ventricular rate. 5. Hypovolemic shock. 6. Chronic systolic heart failure. 7. Urinary tract infection. Cultures negative. 8. Severe protein malnutrition. 9. History of transient ischemic attack. 10. Chronic obstructive pulmonary disease. 11. Chronic kidney disease, stage 2. 12. History of skin cancer, status post excision. 13. History of lupus. CONSULTANTS Dr. Tucker, Dr. Washington, and Dr. Kay. PROCEDURES None. DIAGNOSTIC STUDIES LABORATORY DATA: Sodium 135, potassium 3.8, creatinine 1.4, carbon dioxide 21, calcium 8.3, urine culture is negative. WBC 6.8, hemoglobin 8.2, platelets 81, blood cultures negative. Urinalysis shows WBC 5-10, trace leukocyte esterase, 1+ protein. Lactic acid 1.7. IMAGING STUDIES: CAT scan of the abdomen and pelvis shows no acute abnormality. No malignant left pleural effusion present. Cholelithiasis present. Gallbladder is not distended. Diffuse soft tissue edema throughout the abdominal mesentery and body wall present. Diverticulosis present. ALLERGIES Multiple including lisinopril, dextrose, warfarin, hydrochlorothiazide, sucrose, adenosine, metoprolol, Coreg, psyllium. DISCHARGE MEDICATIONS 1. DuoNeb one puff inhalation 4 times daily. 2. Plaquenil 400 p.o. daily. 3. Atenolol 25 p.o. b.i.d., take only with for palpation p.r.n. 4. Digoxin 0.125 mg every other day. Unit #: [id number] #: [id number] Patient: WOODROW STEWART 5. Carafate 1 gm p.o. before meals and at bedtime. 6. Lortab 5 mg 1 tablet q.8 p.r.n. pain. 7. Protonix 40 p.o. daily. Urinary tract infection present on admission, culture negative. HOSPITAL COURSE 65-year-old admitted because of abdominal pain and nausea. Metastatic non-small cell lung cancer with pancytopenia, very poor prognosis: Patient is DNR. Patient is Hospice candidate according to Dr. Tucker. I talked with his and also Dr. Washington talked with his . Patient and agree for hospice now. The patient will be discharged home with hospice. Hypovolemic shock: Patient received IV fluids currently solved. Pancytopenia secondary to chemotherapy and cancer. Patient received Granix currently stable and platelets 81. No active bleeding. Atrial fibrillation with rapid ventricular rate: Patient will continue the digoxin every other day. Tenormin has been changed to p.r.n. only because of low blood pressure. Abdominal pain likely secondary to chemotherapy and gastritis: Protonix and Carafate has been started. Initially EGD was planned but later discontinued because patient is Hospice. Chronic systolic heart failure stable. Urinary tract infection: Culture negative. Patient received IV fluids. Patient has a very poor prognosis, DNR, Hospice candidate. Patient is discharging home with Hospice. DISCHARGE TIME 40 minutes. Dictated by... Nader Dupont TD: 07/11/2016 11:24 JOB #: [id number] DISCHARGE SUMMARY Page 1 of 1 X Beatrice Nelson MD X DISCHARGE SUMMARY
--- NOTE | ~2016-07-08 | CO ---
Unit #: [id number] #: [id number] Patient: WOODROW STEWART [id number] [facility]. [address] [place], [place] [address] [id number] MR#: [id number] NAME: WOODROW STEWART ROOM: 315 Age: 65 Sex: M Admission Date: 07/08/2016 : 1950 Attending Physician: Beatrice Nelson M.D. Primary Care Physician: Dena White M.D. CONSULTATION REPORT REASON FOR CONSULTATION Atrial fibrillation with rapid ventricular response. HISTORY OF PRESENT ILLNESS This is a 65-year-old, white male who is known to Dr. Washington and has a history of hypotension, hyperlipidemia, ischemic cardiomyopathy where his ejection fraction is less than 10%, chronic systolic heart failure, and atrial fibrillation that has been persistent. He was discharged from this facility in May of 2014 where he was diagnosed with non-small cell lung cancer, which is stage 4. There is mets to the cervical spine, left axillary lymph node, and right paratracheal with nodules along with several pulmonary nodules. He has undergone chemotherapy that started on 06/18/[address] Tucker. Since his discharge, the patient has lost a total of 40 pounds. Over the past one week, he has been able to eat, has been nauseated, vomiting, and had nonbloody diarrhea. He complained of abdominal discomfort. His , who assists him with his care, adjusted his antihypertensive medications and diuretics. She withheld atenolol and losartan, but recently continued atenolol twice a day, because of low blood pressure. She gives his diuretics on occasion. He required treatment with IV fluids because of systolic blood pressure in the 70s while receiving chemotherapy. He has had no symptoms of angina. Unaware of palpitations. No lower extremity edema, paroxysmal nocturnal dyspnea, or orthopnea. He has been hypotensive during this admission and is currently on IV fluids. CT of his abdomen and pelvis noted for cholelithiasis and diffuse soft tissue edema throughout the abdominal mesentery and body wall. During his stay, the patient developed atrial fibrillation with rapid ventricular response with rates of 144 beats per minute. PAST MEDICAL HISTORY 1. Two-dimensional echocardiogram, 03/27/2016, showed an ejection fraction equal to less than 10%. There is mild aortic regurgitation, moderate mitral regurgitation, moderate tricuspid regurgitation, and moderate pulmonic valvular regurgitation. Right ventricular systolic pressure is 66 mmHg. 2. Chronic diastolic heart failure. 3. History of coronary artery bypass graft, 01/2014, with multiple stents. No details available. 4. Hypertension. 5. Hyperlipidemia. 6. Ischemic cardiomyopathy. 7. Persistent atrial fibrillation not on anticoagulation. 8. Multiple TIAs. 9. Asthma. Unit #: [id number] #: [id number] Patient: WOODROW STEWART 10. COPD. 11. Lupus. 12. Metastatic stage 4 lung cancer undergoing chemotherapy. 13. Active smoker. 14. Recent ETOH use. SOCIAL HISTORY The patient is . He continues to smoke 1/2 pack of cigarettes a day. He has a history of alcohol abuse in the past, but has quit. No illicit drug use. FAMILY HISTORY Negative for coronary artery disease. ALLERGIES Lisinopril, Metamucil, warfarin, hydrochlorothiazide, adenosine, metoprolol, and carvedilol. HOME MEDICATIONS 1. Losartan 100 mg daily. 2. Aspirin 81 mg daily. 3. Niacin 100 mg b.i.d. 4. CoQ10 600 mg daily. 5. Pepcid 20 mg b.i.d. 6. Motrin 400 mg t.i.d. p.r.n. 7. Hydrocodone/acetaminophen 5/325 half tablet daily p.r.n. 8. Combivent 1 puff q.i.d. 9. Aldactone 12.5 mg daily. 10. Furosemide 40 mg b.i.d. 11. Atenolol 75 mg daily. 12. Plaquenil 400 mg daily. REVIEW OF SYSTEMS CONSTITUTIONAL: Negative for fever or chills. Reports a 40-pound weight loss. HEENT: No headache. No hearing or visual changes or difficulty with swallowing. No dizziness. CARDIOVASCULAR: There are no symptoms of angina. Unaware of palpitations. No paroxysmal nocturnal dyspnea or orthopnea. Negative for syncope or near syncope. RESPIRATORY: Has occasional dyspnea and nonproductive cough. No hemoptysis. GASTROINTESTINAL: Positive for abdominal discomfort that is diffuse. No constipation, hematochezia, or hematemesis. Positive for vomiting and diarrhea. EXTREMITIES: Negative for lower extremity edema. PHYSICAL EXAMINATION VITAL SIGNS: Blood pressure 86/59, heart rate 146, temperature 96.6, and BMI 20. GENERAL: This is a thin, ill-appearing, 65-year-old, white male who is in no acute respiratory distress. NEUROLOGICAL: He is awake, alert, and oriented. There are no focal weaknesses. NECK: Trachea is midline. No thyromegaly or lymphadenopathy. No jugular venous distention. HEART: S1 and S2 heart sounds are normal with a soft systolic murmur heard best at the apex. No rubs or clicks. Regular rate and rhythm. Unit #: [id number] #: [id number] Patient: WOODROW STEWART ABDOMEN: Soft, but tender with palpation. EXTREMITIES: Without leg edema. SKIN: Pale and dry. DIAGNOSTIC STUDIES LABORATORY: Glucose 85, BUN 63, creatinine 1.9, sodium 136, and potassium 4.1. Troponin less than 0.05. White count 1.1, hemoglobin 8.7, hematocrit 27.4, and platelet count is 57. IMAGING: Chest x-ray shows a large left upper central lung mass and metastatic pulmonary nodules in the right lower lobe. Wijfe-op-ylqusarw left pleural effusion. Left upper lung consolidation. CT of the abdomen and pelvis reveals cholelithiasis, soft tissue edema throughout the abdominal mesentery, and body wall. Mild diverticulosis. Small left inguinal hernia. No acute abnormalities. CARDIOVASCULAR: Electrocardiogram: Atrial fibrillation with rapid ventricular response at a rate of 109 beats per minute with questionable old inferior infarct and old anterior infarct. Right bundle branch block. IMPRESSION 1. Abdominal pain of questionable etiology. 2. Atrial fibrillation with rapid ventricular response. 3. Severe ischemic cardiomyopathy with an ejection fraction of less than 10%. 4. Hypotension. 5. Hyperlipidemia. 6. History of coronary artery bypass graft, 01/2014, with history of multiple stents. 7. Stable angina. 8. Valvular heart disease with moderate mitral regurgitation, moderate tricuspid regurgitation, and moderate pulmonic valvular regurgitation. 9. Stage 4 metastatic lung cancer undergoing chemotherapy. 10. Chronic systolic heart failure. PLAN 1. Cardiology was consulted for atrial fibrillation with rapid ventricular response. Because of hypotension, will start the patient on digoxin for rate control. Continue atenolol as blood pressure tolerates. 2. The patient was scheduled for EGD. Because of hypotension and atrial fibrillation with rapid ventricular response, will cancel and treat empirically for questionable gastritis/PUD. 3. Will start on Protonix and Carafate. 4. Losartan and diuretics will be withheld because of hypotension. 5. No heart failure is noted on examination. 6. Will follow the patient with you. Thank you for allowing us to assist with this patient's care. Dictated by... Sondra Grossman M.D. AEP/hebert Unit #: [id number] #: [id number] Patient: WOODROW STEWART TD: 07/10/2016 06:14 JOB #: [id number] CONSULTATION REPORT Page 1 of 1 X Scott Rivera APRN X CONSULTATION REPORT
--- NOTE | ~2016-07-08 | CT4 ---
[facility] A Service of [facility] RADIOLOGY TEXT RESULTS PATIENT: WOODROW STEWART LOCATION: A 315-01 : 50 UNIT #: [id number] AGE: [address]: Beatrice Nelson MD SEX: M ORDER DR: [id number] [facility] [address]. [place], [place] [address] [id number] I MR#: [id number] Acc #: [id number] NAME: WOODROW STEWART : 1950 SEX: M STUDY DATE/TIME: 07/08/2016 21:45 UNIT: CEDOF ROOM: [id number] STUDY DESCRIPTION: CT Abd and Pelv Wo Cont Attending Physician: Adelaide Cleary M.D. Ordering Physician: Sebas Rg M.D. Primary Care Physician: Dena White M.D. MEDICAL IMAGING REPORT This report is preliminary unless electronic signature is present EXAM CT abdomen and pelvis, noncontrast, 07/08/2016 HISTORY 65-year-old male in the ED complaining of 4-day history of midabdomen pain. Recent diagnosis of metastatic left upper lobe lung cancer last month. TECHNIQUE CT examination of the abdomen and pelvis without oral or IV contrast, as ordered. This CT exam was performed with one or more of the following radiation dose reduction techniques: automatic exposure control, adjustment of mA and/or kV according to patient size, and iterative reconstruction. COMPARISON PET/CT scan, 06/03/2016 FINDINGS ABDOMEN: Lower chest images show a large malignant left pleural effusion and metastatic pulmonary nodules in the right lower lung. The left effusion has increased in size since 06/03/2016. Small gallstones within a nondistended gallbladder. No bile duct dilatation. Liver, pancreas and spleen are normal in size and appearance. Probable bilateral renal cysts, incompletely characterized on this noncontrast study. No evidence of urinary obstruction. Small bowel and colon are normal in caliber and appearance, as imaged, with the exception of mild sigmoid diverticulosis. The appendix is normal. Normal-caliber abdominal aorta. [facility] A Service of [facility] RADIOLOGY TEXT RESULTS PATIENT: WOODROW STEWART LOCATION: C3A 315-01 : 50 UNIT #: [id number] AGE: [address]: Beatrice Nelson MD SEX: M ORDER DR: PELVIS FINDINGS: Bladder, prostate and rectum are within normal limits. Small left inguinal hernia contains pelvic fat. Mild diffuse soft tissue edema throughout abdominal mesentery and body wall. IMPRESSION 1. No acute abnormality is identified within the abdomen or pelvis. 2. Known malignant left pleural effusion. This has enlarged since the PET/CT scan of 06/03/2016. Metastatic pulmonary nodules in the visualized right lower lung without significant change. 3. Cholelithiasis. Gallbladder is nondistended. No bile duct dilatation. 4. Diffuse soft tissue edema throughout the abdominal mesentery and body wall. 5. Mild diverticulosis. 6. Small left inguinal hernia containing pelvic fat. Dictated by... Alonso Miller M.D. THIS IS AN ELECTRONICALLY VERIFIED REPORT Alonso Miller M.D. at 07/09/2016 10:15 AM CRYSTAL/tyler TD: 07/09/2016 02:56 JOB #: [id number] MEDICAL IMAGING REPORT Page 1 of 1 COPY
--- NOTE | ~2016-07-08 | HP ---
Unit #: [id number] #: [id number] Patient: WOODROW STEWART [id number] [address] [place], [place] [address] [id number] I MR#: [id number] NAME: WOODROW STEWART ROOM: 01054 Age: 65 Sex: M Admission Date: 07/08/2016 : 1950 Attending Physician: Adelaide Cleary M.D. Primary Care Physician: Dena White M.D. HISTORY AND PHYSICAL CHIEF COMPLAINT Generalized abdominal pain, pancytopenia, A-fib with RVR, hypotension. HISTORY This 65-year-old male with metastatic lung cancer, probably non-small cell, with ischemic cardiomyopathy, paroxysmal atrial fibrillation and COPD, is admitted for abdominal pain. The patient was last admitted to this facility 05/25/2016 for A-fib with RVR, possible pneumonia and found to have an obstructing left upper lobe submucosal endobronchial mass with positive pathology for likely non-small cell lung cancer. Is being followed by Dr. Tucker, and last cycle of chemotherapy was one week ago. States over the past week he has developed increasing abdominal pain which is generalized along with non-bloody nausea, vomiting and diarrhea, feeling feverish, lightheaded with palpitations. He was brought to this emergency department tonight with a heart rate of 139, in A-fib, blood pressure 80/56. He was bolused a liter of saline. He is in a considerable amount of discomfort although his abdomen is fairly soft. Workup shows pancytopenia. CT scan of the abdomen shows no acute disease in the abdomen or pelvis, but does show patient's left lung malignancy as does his chest x-ray. PAST MEDICAL HISTORY 1. Ischemic cardiomyopathy with ejection fraction 10%, status post CABG and stents. 2. Chronic kidney disease. 3. Hypertension. 4. Hyperlipidemia. 5. Excision of skin cancer. 6. TIA. 7. COPD. 8. Admission in May with diagnosis of metastatic lung cancer, followed by Dr. Tucker with port in place. 9. History of lupus. 10. A-fib. 11. Chronic kidney disease. ALLERGIES Lisinopril, dextrose, Coumadin, hydrochlorothiazide, adenosine, metoprolol, Coreg, Metamucil. HOME MEDICATIONS Uncertain. Will contact the patient's pharmacy. Unit #: [id number] #: [id number] Patient: WOODROW STEWART FAMILY HISTORY CVA, CHF. SOCIAL HISTORY The patient smokes one half pack per day of tobacco. No longer drinks alcohol. Lives with his . REVIEW OF SYSTEMS Difficult to obtain as the patient, himself, is a very poor historian as he is in a considerable amount of discomfort. PHYSICAL EXAMINATION GENERAL APPEARANCE: 65-year-old male who is complaining of abdominal pain. VITAL SIGNS: Temperature 97.5, pulse 139, respirations 29, initial blood pressure 80/56 which did improve to 87/67. HEENT: Eyes PERRLA. Extraocular muscles are intact. Pharynx is benign. NECK: Supple. CHEST: Diminished breath sounds on the left. CARDIAC: Tachy, irregular S1, S2. Soft systolic murmur best heard at the apex. ABDOMEN: Bowel sounds are somewhat hyperactive. Generalized abdominal tenderness but abdomen is soft without rebound, guarding. No definite hepatosplenomegaly or masses. EXTREMITIES: Without edema. NEUROLOGIC: The patient is awake, alert, oriented. Cranial nerves are intact. He is able to move all extremities. DIAGNOSTIC STUDIES LABORATORY: Admission labs - hematocrit is 25.2, down from 34.5 last month. White blood count 1.1, platelet count is 57, 6 neutrophils noted. INR is 1.3, PTT 36.9. SMA-12 - BUN 63, creatinine 2, up from a BUN of 31, creatinine of 1.7 last month. Sodium 134, calcium 8.3, protein 4.9, albumin is 2. Lipase is 14. Lactic acid normal. Cardiac markers are negative. IMAGING: Chest x-ray - left upper lobe opacity with postop consolidation, increased malignant pleural effusion and metastatic disease to the lower lung. CT scan of the abdomen and pelvis showed no acute disease. Gallstones noted along with diverticular disease and diffuse mesentery edema. Left lung shows malignancy pleural effusion with metastatic disease at the base. CARDIOVASCULAR: EKG shows A-fib, RVR, rate 110 with T wave inversions noted V1, V3. ASSESSMENT 1. Generalized abdominal pain of uncertain etiology: The patient has been experiencing nausea, vomiting and diarrhea with the above. 2. Stage 4 lung cancer, undergoing chemotherapy. 3. Pancytopenia secondary to chemotherapy. 4. History of paroxysmal atrial fibrillation, currently in atrial fibrillation with rapid ventricular response. 5. Ischemic cardiomyopathy, ejection fraction 10%. Unit #: [id number] #: [id number] Patient: WOODROW STEWART 6. History of transient ischemic attack. 7. Hypertension with low blood pressure. 8. Chronic obstructive pulmonary disease. PLANS 1. One dose of cefotetan and Flagyl pending blood cultures, stool cultures, urinalysis. 2. Gentle IV fluids and supportive treatment. 3. Pain control. 4. SCDs for DVT prophylaxis. 5. Oncology and surgical evaluation. 6. Proton pump inhibitor. 7. Overall prognosis is poor. Dictated by Adelaide Cleary M.D. AML/df TD: 07/09/2016 05:07 JOB #: [id number] HISTORY AND PHYSICAL Page 1 of 1 X Adelaide Cleary MD X HISTORY AND PHYSICAL
--- NOTE | ~2016-07-08 | EKG ---
PATIENT: WOODROW STEWART UNIT #: [id number] Ventricular Rate: 109 BPM Atrial Rate: 75 BPM QRS Duration: 150 ms Q-T Interval: 396 ms QTC Calculation(Bezet): 533 ms Calculated R [place]: 46 degrees Calculated T [place]: 10 degrees Diagnosis Line: Atrial fibrillation with rapid ventricular Diagnosis Line: response with premature ventricular or aberrantly Diagnosis Line: conducted complexes Diagnosis Line: Right bundle branch block Diagnosis Line: Possible Inferior infarct (cited on or before Diagnosis Line: 31-JAN-2016) Diagnosis Line: Anterior infarct (cited on or before 31-JAN-2016) Diagnosis Line: Abnormal ECG Diagnosis Line: When compared with ECG of 29-MAY-2016 12:22, Diagnosis Line: Questionable change in initial forces of Lateral Diagnosis Line: leads Diagnosis Line: Nonspecific T wave abnormality has replaced Diagnosis Line: inverted T waves in Inferior leads Diagnosis Line: Confirmed by SALMA RAMACHANDRAN MD ([id number]) on Diagnosis Line: 07/09/2016 1:31:53 PM INTERPRETING MD: DUARTE STEELE
--- NOTE | ~2016-07-08 | CO ---
Unit #: [id number] #: [id number] Patient: VITALIY STEWART [id number] [address] [place], [place] [address] [id number] MR#: [id number] NAME: VITALIY STEWART ROOM: 315 Age: 65 Sex: M Admission Date: 07/08/2016 : 1950 Attending Physician: Beatrice Nelson M.D. Primary Care Physician: Dena White M.D. Requesting Physician: Adelaide Cleary M.D. Consultation Date: 07/09/2016 CONSULTATION REPORT REASON FOR CONSULTATION Metastatic non-small cell lung cancer with pancytopenia and abdominal pain. HISTORY OF PRESENT ILLNESS Mr. Vitaliy Stewart is a 65-year-old with a history of ischemic cardiomyopathy, stage 4 non-small cell lung cancer, who is status post cyclic chemotherapy with weekly Abraxane and carboplatin. He was admitted through the emergency room complaining of abdominal pain starting last Friday along with hypertension. The patient is a poor historian and is somewhat confused but tells me that pain started last Friday and has been crampy and intermittent. Also, with nausea, vomiting and diarrhea. He felt feverish with palpitations. At admission through the emergency room, he was in atrial fibrillation with a heart rate of 139 and blood pressure of 88/56. His protime and INR were subtherapeutic. He had a CT scan of the abdomen and pelvis done without contrast in view of his renal function which shows no acute abnormality. His left pleural effusion was enlarged. He did have cholelithiasis. However, gallbladder was not distended. There is diffuse soft tissue edema throughout the abdominal mesentery and abdominal wall. Lactic acid is 1.5. PAST HISTORY 1. Ischemic cardiomyopathy. 2. Congestive heart failure. 3. Ejection fraction 10% 4. He has a history of angioplasty with stent placement and bypass surgery in 2014. Other medical problems include: 5. Hypertension. 6. Hyperlipidemia. 7. Transient ischemic attacks. 8. COPD. 9. Discoid lupus. 10. Metastatic lung cancer was diagnosed on March 29, 2016, when he was found to have soft tissue encasing the left hilum, left upper lobe pulmonary bronchus. A PET CT scan showed hypermetabolic left upper lobe mass along with evidence of metastatic disease to the cervical spine at C4, left axillary lymph nodes and a right paratracheal nodule conglomerate with innumerable pulmonary nodules. He starts his first cycle of chemotherapy with Abraxane and carboplatin on 06/18/2016. PERSONAL HISTORY Coronary artery bypass surgery. Unit #: [id number] #: [id number] Patient: VITALIY STEWART FAMILY HISTORY Negative for cancer in immediate family. SOCIAL HISTORY Smokes about a half pack a day. Drinks two to three mixed drinks daily. 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 REVIEW OF SYSTEMS Limited by patient's confusion and weakness. As above. PHYSICAL EXAMINATION GENERAL: He is a an elderly man, awake, alert but slightly confused although he is oriented to person but not place or time. VITAL SIGNS: Temperature is 97.5, pulse is 118, respiratory rate 16, blood pressure 97/54, sat'ing 91% on 2 L oxygen. HEENT: Mild pallor, no icterus. Mucous membranes are dry. NECK: No adenopathy, JVD or thyromegaly. CARDIOVASCULAR SYSTEM: First and second heart sounds are irregular with tachycardia. LUNGS: Chest expansion is symmetric. Bilaterally clear with normal breath sounds. ABDOMEN: Tender with bowel sounds appearing sluggish. Nondistended. EXTREMITIES: Warm with good pulses. No edema, cyanosis, clubbing. NEUROLOGICAL: He is awake, alert, oriented x1 to person. DIAGNOSTIC STUDIES LABORATORY: Lactic acid 1.7 with repeat of 1.5. Complete metabolic panel shows a BUN of 63, creatinine of 1.9, eGFR calculated as 36.2. Total protein is 4.5 with an albumin of 1.9. CBC shows a white count of 1.1, hemoglobin 8.7, platelet count 47,000. IMAGING: CT scan of the abdomen and pelvis shows no acute findings apart from cholelithiasis. ASSESSMENT AND PLAN Mr. Vitaliy Stewart is 65 years old with a history of ischemic cardiomyopathy with ejection fraction of 10%, atrial fibrillation with rapid ventricular response, admitted with hypotension, pancytopenia after recent diagnosis of metastatic non-small cell lung cancer, started on cycle one of chemotherapy. He complains of diffuse abdominal pain of unclear etiology but my main concern would be mesenteric ischemia, possibly mesenteric arterial embolism given history of atrial fibrillation with subtherapeutic INR. His renal function and (1) on CT angiogram although with hydration this may improve. Because of pancytopenia, there is a possibility of bacteremia as a source of his abdominal pain. Discussed in detail with patient. Will plan to get blood cultures, start him on broad spectrum antibiotics and Maxipime 2 g IV q.12, start him on Granix subcu until his white count improves to 3500 and continue transfusion support as necessary. If his renal function were to improve, will plan CT angiogram of the abdomen as well as plan CT angiogram based Unit #: [id number] #: [id number] Patient: VITALIY STEWART upon subsequent hospital course. At this point, he is critically ill and I agree with existing orders of DO NOT RESUSCITATE given his extremely poor prognosis. Thank you for allowing me to participate in his care. Dictated by... Nader Lai/manisha TD: 07/09/2016 09:04 JOB #: [id number] CONSULTATION REPORT Page 1 of 1 X Danie Tucker MD X CONSULTATION REPORT
--- NOTE | ~2016-07-08 | CO ---
Unit #: [id number] #: [id number] Patient: WOODROW STEWART [id number] [address] [place], [place] [address] [id number] I MR#: [id number] NAME: WOODROW STEWART ROOM: 315 Age: 65 Sex: M Admission Date: 07/08/2016 : 1950 Attending Physician: Beatrice Nelson M.D. Primary Care Physician: Dena White M.D. Consultation Date: 07/09/2016 CONSULTATION REPORT BRIEF HISTORY The patient is a 65-year-old gentleman, who presents with stage IV lung cancer, undergoing chemotherapy, presents with a recent history of nausea, vomiting, diarrhea, general malaise, illness, anorexia, and low-grade fevers. He also has been somewhat short of air. He denies any bright red blood per rectum. No hematemesis. PAST MEDICAL HISTORY Cardiac dysfunction, congestive heart failure, hypertension. He also has history of pancreatitis. PAST SURGICAL HISTORY He has had a cardiac bypass, cardiac stents. No abdominal operations. HOME MEDICATIONS Tenormin, Lasix, Niaspan, Pepcid, Motrin, hydrocodone. SOCIAL HISTORY Currently does use alcohol on daily basis. Continues to smoke. FAMILY HISTORY Noncontributory. REVIEW OF SYSTEMS No cardiopulmonary complaints at this time. Else, 10 systems reviewed and negative. PHYSICAL EXAMINATION GENERAL: He is awake and alert. Uncomfortable, but in no distress. He does appear cachectic. HEENT: Unremarkable. NECK: Supple. No JVD. Trachea midline. LUNGS: Clear to auscultation with diminished breath sounds bilateral. CARDIOVASCULAR: Regular rate and rhythm. ABDOMEN: Soft. It is mildly tender. There is no rebound. No masses. No hernias. EXTREMITIES: No clubbing, cyanosis, or edema. DIAGNOSTIC STUDIES LABORATORY RESULTS: Show white count of 1.1, hemoglobin 8.7, platelets of 57. Chemistries show normal liver functions. Lipase is normal. IMAGING STUDIES: CT scan shows generalized edema. There are gallstones without gallbladder wall thickening. No evidence of small bowel Unit #: [id number] #: [id number] Patient: WOODROW STEWART obstruction. ASSESSMENT AND PLAN Generalized abdominal pain, unknown etiology. Possible peptic ulcer disease versus gastritis. Doubt acute cholecystitis. PLAN Recommend proton pump inhibitors. We will evaluate with EGD. We would consider HIDA scan if not improved. Dictated by... Nader Menendez/noe TD: 07/09/2016 21:54 JOB #: [id number] CONSULTATION REPORT Page 1 of 1 X Anthony Kay MD X CONSULTATION REPORT
--- NOTE | ~2016-07-08 | CR72 ---
[facility] A Service of [facility] & [facility] RADIOLOGY TEXT RESULTS PATIENT: WOODROW STEWART LOCATION: [facility] 315-01 : 50 UNIT #: [id number] AGE: [address]: Beatrice Nelson MD SEX: M ORDER DR: [id number] [facility] [address]. [place], [place] [address] [id number] MR#: [id number] Acc #: [id number] NAME: WOODROW STEWART : 1950 SEX: M STUDY DATE/TIME: 07/08/2016 22:16 UNIT: CEDOF ROOM: [id number] STUDY DESCRIPTION: CR Chest Single View Portable Attending Physician: Adelaide Cleary M.D. Ordering Physician: Pardeep Ochoa M.D. Primary Care Physician: Dena White M.D. MEDICAL IMAGING REPORT This report is preliminary unless electronic signature is present EXAM Chest x-ray, 07/08/2016 HISTORY 65-year-old male with metastatic lung cancer presenting to the ED complaining of 4-day history of abdomen pain, shortness of air and cough. TECHNIQUE AP portable chest x-ray. FINDINGS The examination shows opacification of the left upper lung due to a known large malignant lung mass with postobstructive consolidation. [id number] malignant left pleural effusion has increased in size since the PET CT scan of 06/03/2016. Metastatic nodularity is visible in the right lower lung. Right lung is otherwise clear. Median sternotomy. Central venous port catheter remains in good position. IMPRESSION 1. Large left upper central lung mass with left upper lobe consolidation, unchanged. 2. Pmkvu-os-bplpfjer, enlarging left pleural effusion. 3. Metastatic pulmonary nodularity in the right lower lung. Dictated by... Alonso Miller M.D. THIS IS AN ELECTRONICALLY VERIFIED REPORT Alonso Miller M.D. at 07/09/2016 10:15 AM CRYSTAL/sofía TD: 07/09/2016 03:26 [facility] A Service of [facility] RADIOLOGY TEXT RESULTS PATIENT: WOODROW STEWART LOCATION: [facility] 315-01 : 50 UNIT #: [id number] AGE: [address]: Beatrice Nelson MD SEX: M ORDER DR: JOB #: [id number] MEDICAL IMAGING REPORT Page 1 of 1 COPY
[~2016-07-08 19:11] MED LIST changes: -ATENOLOL PO; -CARAFATE1 GM PO; -LANOXIN125 MCG PO; -PLAQUENIL200 MG PO; -PROTONIX PO
[2016-07-08 20:15] LABS: BASOPHIL% 0.3 % (0-2.5); EOSINOPHIL% 2.2 % (0.0-7.0); HEMATOCRIT 25.2 % (38.0-50.0); HEMOGLOBIN 8.1 gm/dL (13.0-16.0); LYMPHOCYTE# 0.9 X10e3 (1.0-3.5); MEAN CELL VOLUME 88.7 FL (83-96); MEAN CORPUSCULAR HEMOGLOBIN 28.5 PG (28-34); MEAN CORPUSCULAR HGB CONC 32.2 g/dL (30-36); MEAN PLATELET VOLUME 11.8 FL (6.5-11.5); MONOCYTE# 0.1 X10e3 (0-1.0); MONOCYTE% 9.4 % (3.0-12.0); NEUTROPHIL# 0.1 X10e3 (1.5-7.1); NEUTROPHIL% 7.1 % (40-75); PLATELET COUNT 57 X10e3 (140-420); RED BLOOD COUNT 2.85 X10e (3.90-5.60); RED CELL DISTRIBUTION WIDTH 17.6 % (11.0-15.5); WHITE BLOOD COUNT 1.1 X10e3 (4.0-10.5)
[2016-07-08 20:16] LABS: DIFF IND YES
[2016-07-08 20:28] LABS: INR 1.3; PARTIAL THROMBOPLASTIN TIME 36.9 SECONDS (23.5-31.3)
[2016-07-08 20:37] LABS: BILIRUBIN, DIRECT 0.3 mg/dL (0.0-0.2); BILIRUBIN,INDIRECT 1.1 mg/dL (0.0-0.9); BILIRUBIN,TOTAL 1.4 mg/dL (0.2-2.0); BUN/CREATININE RATIO 31.5; CALCIUM SERUM 8.3 mg/dL (8.4-10.2); POTASSIUM 3.8 mmol/L (3.5-5.1); PROTEIN TOTAL SERUM 4.9 g/dL (6.0-8.3)
[2016-07-08 21:02] LABS: PLATELET ESTIMATE DECREASED (NORMAL)
[2016-07-08 21:13] LABS: POC - CKMB <1.0 ng/mL (0.0-7.9); POC - TROPONIN <0.05 ng/mL (<=0.05)
[2016-07-09 00:25] LABS: BASOPHIL% 0.7 % (0-2.5); EOSINOPHIL% 3.1 % (0.0-7.0); HEMATOCRIT 27.2 % (38.0-50.0); HEMOGLOBIN 8.7 gm/dL (13.0-16.0); LYMPHOCYTE# 0.8 X10e3 (1.0-3.5); LYMPHOCYTE% 76.4 % (17.0-45.0); MEAN CELL VOLUME 89.7 FL (83-96); MEAN CORPUSCULAR HEMOGLOBIN 28.5 PG (28-34); MEAN CORPUSCULAR HGB CONC 31.8 g/dL (30-36); MEAN PLATELET VOLUME 11.3 FL (6.5-11.5); MONOCYTE# 0.1 X10e3 (0-1.0); MONOCYTE% 12.7 % (3.0-12.0); NEUTROPHIL# 0.1 X10e3 (1.5-7.1); NEUTROPHIL% 7.1 % (40-75); PLATELET COUNT 57 X10e3 (140-420); RED BLOOD COUNT 3.04 X10e (3.90-5.60); RED CELL DISTRIBUTION WIDTH 17.7 % (11.0-15.5); WHITE BLOOD COUNT 1.1 X10e3 (4.0-10.5)
[2016-07-09 00:38] LABS: ALBUMIN SERUM 1.9 g/dL (3.5-5.0); BILIRUBIN,TOTAL 1.2 mg/dL (0.2-2.0); BUN/CREATININE RATIO 33.15; CALCIUM SERUM 8.1 mg/dL (8.4-10.2); CREATININE SERUM 1.9 mg/dL (0.6-1.4); GLOM FILT RATE Estimated 36.2 mL/min (>60); POTASSIUM 4.1 mmol/L (3.5-5.1); PROTEIN TOTAL SERUM 4.5 g/dL (6.0-8.3)
[2016-07-09 00:54] LABS: DIFF IND YES
[2016-07-09 00:58] LABS: PLATELET ESTIMATE DECREASED (NORMAL)
[2016-07-09] MEDS ORDERED: FUROSEMIDE40 MG PO (11:16)
[2016-07-09] MEDS ORDERED: PLAQUENIL200 MG PO (11:18)
[2016-07-09] MEDS ORDERED: ATENOLOL PO (11:18)
[2016-07-09 14:40] LABS: URINE SOURCE CLEAN CATCH
[2016-07-09 14:51] LABS: URINE APPEARANCE CLOUDY; URINE BILIRUBIN NEG (NEG); URINE BLOOD TRACE (NEG); URINE COLOR YELLOW; URINE GLUCOSE NEG (NEG); URINE KETONE TRACE (NEG); URINE LEUKOCYTE ESTERASE TRACE (NEG); URINE NITRATE NEG (NEG); URINE PROTEIN 1+ (NEG); URINE SPECIFIC GRAVITY 1.018 (1.003-1.035); URINE UROBILINOGEN 0.2 MG/DL (NEG)
[2016-07-09 14:55] LABS: CULTURE INDICATED? YES; URINE BACTERIA AUWI NEG (NEGATIVE); URINE SQUAMOUS EPITHELIAL CELL OCC /[HPF]
[2016-07-10 06:24] LABS: HEMATOCRIT 25.1 % (38.0-50.0); MEAN CELL VOLUME 89.1 FL (83-96); MEAN CORPUSCULAR HEMOGLOBIN 28.5 PG (28-34); MEAN PLATELET VOLUME 10.5 FL (6.5-11.5); RED BLOOD COUNT 2.82 X10e (3.90-5.60); RED CELL DISTRIBUTION WIDTH 17.8 % (11.0-15.5)
[2016-07-10 06:25] LABS: WHITE BLOOD COUNT 1.7 X10e3 (4.0-10.5)
[2016-07-10 07:34] LABS: ALBUMIN SERUM 1.7 g/dL (3.5-5.0); BILIRUBIN,TOTAL 1.2 mg/dL (0.2-2.0); BUN/CREATININE RATIO 30.71; CALCIUM SERUM 8.2 mg/dL (8.4-10.2); CREATININE SERUM 1.4 mg/dL (0.6-1.4); GLOM FILT RATE Estimated 52.4 mL/min (>60); MAGNESIUM 1.8 mg/dL (1.6-3.0); PHOSPHOROUS 2.3 mg/dL (2.5-4.6); POTASSIUM 3.5 mmol/L (3.5-5.1); PROTEIN TOTAL SERUM 4.4 g/dL (6.0-8.3)
[2016-07-11 05:42] LABS: HEMATOCRIT 26.2 % (38.0-50.0); HEMOGLOBIN 8.3 gm/dL (13.0-16.0); MEAN CELL VOLUME 90.6 FL (83-96); MEAN CORPUSCULAR HEMOGLOBIN 28.8 PG (28-34); MEAN CORPUSCULAR HGB CONC 31.8 g/dL (30-36); MEAN PLATELET VOLUME 10.8 FL (6.5-11.5); RED BLOOD COUNT 2.89 X10e (3.90-5.60); RED CELL DISTRIBUTION WIDTH 17.5 % (11.0-15.5)
[2016-07-11 05:43] LABS: WHITE BLOOD COUNT 6.8 X10e3 (4.0-10.5)
[2016-07-11 07:14] LABS: BUN/CREATININE RATIO 26.42; CALCIUM SERUM 8.3 mg/dL (8.4-10.2); CREATININE SERUM 1.4 mg/dL (0.6-1.4); GLOM FILT RATE Estimated 52.4 mL/min (>60); POTASSIUM 3.8 mmol/L (3.5-5.1)
[2016-07-11] MEDS ORDERED: LANOXIN125 MCG PO (15:37)
[2016-07-11] MEDS ORDERED: HYDROCODON-ACE1 EAC7 PO (15:38)
[2016-07-11] MEDS ORDERED: PROTONIX PO (15:39)
[2016-07-11] MEDS ORDERED: CARAFATE1 GM PO (15:40)
== END 2016-07-11 16:14 | DRG 808 ==
LOC: CED 19:11 → CEDOF 23:25 → C3A PCU 23:30 → CEDOF 07-09 07:54 → C3A PCU 07-09 08:02
PROVIDERS: Emergency Medicine; Internal Medicine
DX: D61.810 Antineoplastic chemotherapy induced pancytopenia (principal); R57.1 Hypovolemic shock; E43 Unspecified severe protein-calorie malnutrition; I13.0 Hypertensive heart and chronic kidney disease with heart failure and stage 1 through stage 4 chronic kidney disease, or unspecified chronic kidney disease; C79.51 Secondary malignant neoplasm of bone; C77.3 Secondary and unspecified malignant neoplasm of axilla and upper limb lymph nodes; I50.22 Chronic systolic (congestive) heart failure; K56.7 Ileus, unspecified; I48.0 Paroxysmal atrial fibrillation; C34.90 Malignant neoplasm of unspecified part of unspecified bronchus or lung; N39.0 Urinary tract infection, site not specified; I25.5 Ischemic cardiomyopathy; E78.5 Hyperlipidemia, unspecified; J44.9 Chronic obstructive pulmonary disease, unspecified; Z86.73 Personal history of transient ischemic attack (TIA), and cerebral infarction without residual deficits; F17.210 Nicotine dependence, cigarettes, uncomplicated; J45.909 Unspecified asthma, uncomplicated; Z79.82 Long term (current) use of aspirin; I20.9 Angina pectoris, unspecified; I08.8 Other rheumatic multiple valve diseases; H01.129 Discoid lupus erythematosus of unspecified eye, unspecified eyelid; K59.00 Constipation, unspecified; Z66 Do not resuscitate; T45.1X5A Adverse effect of antineoplastic and immunosuppressive drugs, initial encounter; N18.2 Chronic kidney disease, stage 2 (mild); K80.20 Calculus of gallbladder without cholecystitis without obstruction; K29.70 Gastritis, unspecified, without bleeding
CPT/HCPCS: 36415; 71010; 74176; 80048; 80053; 80076; 81003; 82150; 82553; 83605; 83690; 83735; 84100; 84484; 85025; 85027; 85610; 85730; 87040; 87086; 93005; 94640; 94760; 96360; 99285; C9113; J0692; J1160; J1447; J1642; J2270; J2405